=== PATIENT | female | born 1935 | race Caucasian/White ===

== ENCOUNTER 2016-12-07 20:07 | Observation (INO) ==
[2016-12-07] MEDS ORDERED: Aspirin 81 MG TAB.CHEW PO ONE (20:37)
--- NOTE | 2016-12-07 20:50 | Emergency Department Note ---
Disposition Clinical Impression: Chest pain Qualifiers: Chest pain type: unspecified Qualified Code(s): R07.9 - Chest pain, unspecified Disposition: Admitted As Inpatient Chest Pain HPI - General Chief Complaint: ED Chest Pain Stated Complaint: cp Time Seen by Provider: 12/07/16 20:37 Source: patient Limitations: no limitations Vital Signs Reviewed: Yes Nursing Notes Reviewed: Yes - History of Present Illness HPI Narrative: Mrs. Biswas, a previously healthy 81yo female, presents by POV from shopping with CC: chest pain. Daughter and son are bedside. Onset 45min prior to arrival, duration 10-15 min. Located substernal, described as a heaviness. Associated with nausea without vomiting, dyspnea, diaphoresis, left arm tingling and weakness. Patient has never experienced these symptoms before. She did not take aspirin prior to arrival. PMH: Patient takes no daily medications. She denies hypertension, hyperlipidemia, diabetes, history of cardiac problems, GERD. Family history: Denies familial history of cardiac problems. Severity scale (1-10): 5 - Related Data Home Medications Medication Instructions Recorded Confirmed Buspirone HCl [Buspar] 5 mg PO BID 12/07/16 12/07/16 Allergies Allergy/AdvReac Type Severity Reaction Status Date / Time No Known Allergies Allergy Verified 09/11/16 07:47 All systems ED: reviewed and negative except as stated. Constitutional: Denies: fever, chills Cardiovascular: Reports: chest pain. Denies: palpitations, dyspnea on exertion Respiratory: Reports: dyspnea. Denies: cough Gastrointestinal: Reports: nausea. Denies: abdominal pain, vomiting, diarrhea, constipation, hematemesis, melena, hematochezia Genitourinary: Denies: dysuria Musculoskeletal: Denies: back pain, neck pain Neurological: Reports: weakness, numbness. Denies: headache Hematological/Lymphatic: Denies: easy bleeding, easy bruising Chest Pain PMH - Past Medical History Medical history: Reports: no medical history Psychiatric history: Reports: no psych history - Social History Smoking Status: Never smoker Alcohol use: Reports: none Drug use: Reports: none Physical Exam General: Patient is alert, oriented, and in no acute distress. HEENT: No facial asymmetry. Head is normocephalic and atraumatic. PERRLA. Nasal turbinates moist and pink. Posterior pharynx without exudates or cobblestoning. Trachea midline, no palpable thyroid nodules, no thyromegaly. Cardiovascular: Heart regular rate and rhythm with split S1 and without clicks, rubs, gallops, or murmurs. No JVD. PMI nondisplaced. Respiratory: Symmetric chest rise with good respiratory effort. Bilateral breath sounds are clear without wheezing, crackles, or rhonchi. Abdomen: Bowel sounds present normoactive x-4 quadrants. Abdomen is soft, nondistended, and nontender. No organomegaly noted. Neuro: Cranial nerves II through XII grossly intact. Sensation light touch intact. Psych: Patient's affect is appropriate for situation. - General Limitations: no limitations General appearance: alert, in no apparent distress Course Course Narrative: Will workup for chest pain rule out. The patient's medical history is not concerning, she is high risk given her age and convincing story. Anticipate admission for observation and continued workup. CT head was ordered on this patient. Indication was incorrectly described as CVA with history of dizziness. Patient does not have a history of CVA. Patient does not complain of dizziness. Patient did have vague complaints including neurologic symptoms of her left arm. CT head was negative. At this juncture, patient's lab work was unremarkable from a cardiac standpoint. Even so, have recommended the patient be placed in observation for continued cardiac workup given the initial blood draw was done within 90 minutes of onset of symptoms. Patient's story is concerning as is her age group. Vital Signs Temperature 0 F L 12/07/16 20:09 Pulse Rate 0 12/07/16 20:09 Respiratory Rate 0 12/07/16 20:09 Blood Pressure 0/0 12/07/16 20:09 O2 Sat by Pulse Oximetry 0 L 12/07/16 20:09 Temperature 97.9 F 12/08/16 00:18 Pulse Rate 73 12/08/16 00:18 Respiratory Rate 16 12/08/16 00:18 Blood Pressure 98/80 12/08/16 00:18 O2 Sat by Pulse Oximetry 95 12/08/16 00:18 Oxygen Delivery Oxygen Delivery Room Air Chest Pain - Lab Data Result diagrams: 12/07/16 21:21 12/07/16 21:21 Lab Results 12/07/16 12/07/16 12/07/16 Range/Units 21:21 21:21 21:21 WBC 6.4 (4.3-11.1) K/mcL RBC 4.78 (3.82-4.97) M/mcL Hgb 15.1 (11.5-15.4) g/dL Hct 45.9 H (35.3-44.9) % MCV 96.0 (83.0-100.0) fL MCH 31.6 (28.0-33.3) pg MCHC 32.9 (31.6-35.5) g/dL RDW 12.4 (11.5-14.5) % Plt Count 250 (140-400) K/mcL MPV 9.2 L (9.4-12.4) fL Immature Gran % 0.2 (0-4) % Seg Neutrophils % 66.1 % Lymphocytes % 23.7 % Monocytes % 7.5 % Eosinophils % 1.7 % Basophils % 0.8 % Neutrophils # 4.2 (1.6-8.9) K/mcL Lymphocytes # 1.5 (0.6-4.6) K/mcL Monocytes # 0.5 (0.0-1.3) K/mcL Eosinophils # 0.1 (0.0-0.6) K/mcL Basophils # 0.1 (0.0-0.2) K/mcL PT 12.4 H (9.4-12.1) Seconds INR 1.1 APTT 30.3 (26.0-36.0) Seconds Sodium 134 L (136-145) mEq/L Potassium 4.3 (3.5-4.5) mEq/L Chloride 97 L (98-109) mEq/L Carbon Dioxide 27 (19-29) mEq/L BUN 15 (7-20) mg/dL Creatinine 0.99 (0.57-1.11) mg/dL Est GFR ( Amer) > 60 (> 60) Est GFR (Non-Af Amer) 54 L (> 60) BUN/Creatinine Ratio 15 (6-26) Glucose 214 H (70-99) mg/dL Calculated Osmolality 285 (280-300) Calcium 8.8 (8.6-10.8) mg/dL Troponin I (0-0.03) ng/mL 12/07/16 Range/Units 21:21 WBC (4.3-11.1) K/mcL RBC (3.82-4.97) M/mcL Hgb (11.5-15.4) g/dL Hct (35.3-44.9) % MCV (83.0-100.0) fL MCH (28.0-33.3) pg MCHC (31.6-35.5) g/dL RDW (11.5-14.5) % Plt Count (140-400) K/mcL MPV (9.4-12.4) fL Immature Gran % (0-4) % Seg Neutrophils % % Lymphocytes % % Monocytes % % Eosinophils % % Basophils % % Neutrophils # (1.6-8.9) K/mcL Lymphocytes # (0.6-4.6) K/mcL Monocytes # (0.0-1.3) K/mcL Eosinophils # (0.0-0.6) K/mcL Basophils # (0.0-0.2) K/mcL PT (9.4-12.1) Seconds INR APTT (26.0-36.0) Seconds Sodium (136-145) mEq/L Potassium (3.5-4.5) mEq/L Chloride (98-109) mEq/L Carbon Dioxide (19-29) mEq/L BUN (7-20) mg/dL Creatinine (0.57-1.11) mg/dL Est GFR ( Amer) (> 60) Est GFR (Non-Af Amer) (> 60) BUN/Creatinine Ratio (6-26) Glucose (70-99) mg/dL Calculated Osmolality (280-300) Calcium (8.6-10.8) mg/dL Troponin I 0.01 (0-0.03) ng/mL - Radiology Data Radiology results reviewed: Yes I reviewed the patient's radiology results. Chest X-Ray 12/07/16 20:37 IMPRESSION: No acute abnormality. Large hiatal hernia D/ / 12/07/2016 21:55:08 Axel Yung MD / [email or web address] Interpreting Provider: Axel Yung MD Head CT 12/07/16 21:12 IMPRESSION: No acute intracranial abnormality. Moderate cerebral atrophy appropriate for age. Mild to moderate chronic ischemic white matter changes also age-appropriate. No significant change from the prior study. RECOMMENDATIONS: If the patient's symptoms persist, a MRI would be recommended for further evaluation. D/ / Missael Bragg MD / Missael Bragg MD Interpreting Provider: Missael Bragg MD - EKG Data EKG attestation: Yes I reviewed and interpreted this EKG. EKG results narrative: EKG dated 12/07/16 at 20:20 shows sinus rhythm with rate of 70, rare PVC, normal intervals, left axis, nonspecific ST-T changes. Compared to previous dated at 21:59 showing no acute ischemic changes or comparison. Attestation Statement - Attestation Attestation: I, Shetlon Holden MD, personally performed a history and physical exam of the patient and discussed their management with the resident. I reviewed the resident's note and agree with the documented findings, medical decision making , and plan of care. 81-year-old female presents to the emergency department with family complaining that the patient had an episode of chest pain shortly prior to arrival. She has no known prior cardiac history. He reported patient complained of a lot of heaviness and pressure in her mid chest which radiated to the left arm. The episode was associated with nausea and shortness of breath and diaphoresis. The chest pain lasted 10-15 minutes and resolved. No pain at present. On examination patient is a well-developed well-nourished elderly female in no acute distress. She is alert but seems to have dementia and does not really remember much about the episode of chest pain. There is no cyanosis or diaphoresis. Chest is nontender to palpation. Breath sounds are clear and equal bilaterally. Heart regular rate and rhythm. Abdomen soft and nontender with normal bowel sounds. No acute changes on EKG. Chest x-ray negative. Head CT is negative. Labs reviewed. The hospitalist, Dr. Lockhart, was consulted and accepted admission of the patient.
[2016-12-07 21:28] LABS: Basophils # 0.1 K/mcL (0.0-0.2); Basophils % 0.8 %; Eosinophils # 0.1 K/mcL (0.0-0.6); Eosinophils % 1.7 %; Hematocrit 45.9 % (35.3-44.9); Hemoglobin 15.1 g/dL (11.5-15.4); Immature Granulocytes % 0.2 % (0-4); Lymphocytes # 1.5 K/mcL (0.6-4.6); Lymphocytes % 23.7 %; Mean Corpuscular HGB Conc 32.9 g/dL (31.6-35.5); Mean Corpuscular Hemoglobin 31.6 pg (28.0-33.3); Mean Platelet Volume 9.2 fL (9.4-12.4); Monocytes # 0.5 K/mcL (0.0-1.3); Monocytes % 7.5 %; Neutrophils # 4.2 K/mcL (1.6-8.9); Platelet Count 250 K/mcL (140-400); Red Blood Count 4.78 M/mcL (3.82-4.97); Red Cell Distribution Width 12.4 % (11.5-14.5); Segmented Neutrophils % 66.1 %
[2016-12-07 21:33] LABS: INR 1.1; Prothrombin Time 12.4 Seconds (9.4-12.1)
[2016-12-07 21:35] LABS: Activated Partial Thrombo Time 30.3 Seconds (26.0-36.0)
[2016-12-07 21:40] LABS: BUN/Creatinine Ratio 15 (6-26); Blood Urea Nitrogen 15 mg/dL (7-20); Calcium 8.8 mg/dL (8.6-10.8); Carbon Dioxide 27 mEq/L (19-29); Chloride 97 mEq/L (98-109); Glucose 214 mg/dL (70-99); Osmolality,Calculated 285 (280-300); Potassium 4.3 mEq/L (3.5-4.5); Sodium 134 mEq/L (136-145); eGFR For African Americans > 60 (> 60); eGFR For Non-African Americans 54 (> 60)
[2016-12-08] MEDS ORDERED: Acetaminophen 325 MG TABLET PO PRN (01:21)
[2016-12-08] MEDS ORDERED: Ondansetron 4 MG/2 ML VIAL IVP PRN (01:21)
[2016-12-08] MEDS ORDERED: Naloxone 0.4 MG/ML INJ IVP PRN (01:21)
[2016-12-08] MEDS ORDERED: *HR* Morphine 2 MG/ML SYRINGE IVP PRN (01:21)
[2016-12-08] MEDS ORDERED: *HR* OxyCODONE Immed Rel 5 MG TABLET PO PRN (01:21)
[2016-12-08] MEDS ORDERED: 0.9 % Sodium Chloride 1,000 ML IVC SCH (01:30)
[2016-12-08] MEDS ORDERED: Nitroglycerin 0.4 MG TAB.SUBL SL PRN (01:31)
[2016-12-08] MEDS ORDERED: *HR* Metoprolol 5 MG/5 ML VIAL IVP PRN (01:31)
[2016-12-08 04:24] LABS: Hematocrit 45.3 % (35.3-44.9); Hemoglobin 14.9 g/dL (11.5-15.4); Mean Corpuscular HGB Conc 32.9 g/dL (31.6-35.5); Mean Corpuscular Hemoglobin 31.3 pg (28.0-33.3); Mean Corpuscular Volume 95.2 fL (83.0-100.0); Mean Platelet Volume 9.5 fL (9.4-12.4); Platelet Count 269 K/mcL (140-400); Red Blood Count 4.76 M/mcL (3.82-4.97); Red Cell Distribution Width 12.4 % (11.5-14.5)
[2016-12-08 04:27] LABS: INR 1.1; Prothrombin Time 11.8 Seconds (9.4-12.1)
[2016-12-08 04:30] LABS: Activated Partial Thrombo Time 29.9 Seconds (26.0-36.0)
[2016-12-08 04:37] LABS: Ionized Calcium 1.1 mmol/L (1.15-1.35)
[2016-12-08 04:40] LABS: Hemoglobin A1C 5.3 %
[2016-12-08 04:44] LABS: Alanine Aminotransferase 11 Units/L (0-55); Albumin 3.3 g/dL (3.5-5.0); Albumin/Globulin Ratio 0.9 (1.1-2.2); Alkaline Phosphatase 79 Units/L (38-126); Aspartate Amino Transferase 24 Units/L (5-34); BUN/Creatinine Ratio 16 (6-26); Bilirubin,Total 0.5 mg/dL (0.2-1.2); Blood Urea Nitrogen 14 mg/dL (7-20); Carbon Dioxide 23 mEq/L (19-29); Chloride 103 mEq/L (98-109); Chol/HDL Ratio 4.7 (0-4.9); Cholesterol 179 mg/dL (< 200); Globulin 3.6 g/dL (2.4-3.5); Glucose 68 mg/dL (70-99); HDL Cholesterol 38 mg/dL (40-59); LDL Cholesterol,Calculated 124 mg/dL (0-99); Magnesium 2.4 mg/dL (1.6-2.6); Osmolality,Calculated 283 (280-300); Phosphorous 3.4 mg/dL (2.3-4.7); Potassium 4.3 mEq/L (3.5-4.5); Sodium 137 mEq/L (136-145); Total Protein 6.9 g/dL (6.0-8.3); Triglycerides 86 mg/dL (< 150); eGFR For African Americans > 60 (> 60); eGFR For Non-African Americans > 60 (> 60)
[2016-12-08 04:47] LABS: VBG HCO3 29.2 mEq/L (21-27); VBG PH 7.42 pH Units (7.32-7.42)
[2016-12-08] MEDS ORDERED: Calcium Gluconate 1,000 MG in D5% in Water 100 ML IVPB ONE (04:48)
--- NOTE | 2016-12-08 04:55 | Internal Med History&Physical ---
Date of Encounter: 12/08/16 Time of Encounter: 01:30 Assessment and Plan (1) Chest pain, rule out acute myocardial infarction Status: Acute . (2) Chest pain with low risk of acute coronary syndrome Status: Acute . (3) Acute chest wall pain Status: Acute . (4) Alzheimer's dementia Status: Chronic . Qualifiers: Alzheimer's disease onset: late-onset Dementia behavioral disturbance: without behavioral disturbance Qualified Code(s): G30.1 - Alzheimer's disease with late onset; F02.80 - Dementia in other diseases classified elsewhere without behavioral disturbance (5) GERD (gastroesophageal reflux disease) Status: Chronic . Qualifiers: Esophagitis presence: esophagitis presence not specified Qualified Code(s) : K21.9 - Gastro-esophageal reflux disease without esophagitis (6) Hiatal hernia Status: Chronic . (7) Osteoarthritis involving multiple joints on both sides of body Status: Chronic . (8) Osteopenia Status: Chronic . (9) Generalized anxiety disorder Status: Chronic . (10) Frail elderly Status: Chronic . Internal Medicine - H&P: HPI Chief complaint: Chest pain Admitted From: Emergency Dept Plans for Post Hospital Care: Home History of present illness: Ms. Biswas is a 81 year old female with no reported chronic medical concerns. She is a nonsmoker. The patient was visited and interviewed and examined. Patient is admitted to the [facility] via the emergency department which presents with complaints of acute onset of chest pain. Patient presented the company of family with reports of acute onset of chest pain beginning within 1 hour of ER presentation. Substernal associated as a oppressive heaviness and feeling of generalized malaise. He was rated as a 5-6/10 severity. Patient experienced some nausea and dyspnea but no emesis. Denied abdominal pain headache diaphoresis left arm paresthesias/ discomfort vision loss or any focal weakness. She denied any similar events in her past. She denied any personal or family related history pertaining to heart disease. She further denied any knowledge personal history for hypertension dyslipidemia and diabetes. Patient and family acknowledged an event that occurred within the hour of a meal which included macedonian fries. It is possible that the symptoms may have been related to her degree of indigestion. It is acknowledged that she has had episodes in the past remotely though of dysphagia and GERD. This was treated with a daily PPI for approximately 30 days with apparent resolution of the further symptoms. She is no longer on a PPI or an antacid therapy. She has never undergone upper endoscopy or lower endoscopy procedures. She does take on occasion Buspar for anxiety. Volunteers that she currently is not suffering from increased anxiety or personal worries. Findings in the ED: Temperature 97.9 pulse 73 respirations 16 BP 98/82 saturation 95% on room air. CBC 6.4 hemoglobin 15.1 platelets 250,000. Differential normal. MPV 9.2. PT 12.4 INR 1.1 PTT 30.3. Metabolic panel normal except sodium 130 chloride 97. BUN 15 creatinine 0.99 GFR 54. Glucose 214 osmolality 285. Troponin 0.01. Portable chest x-ray shows no acute or active cardiopulmonary process. Large hiatal hernia noted. DT head scan showed no acute intracranial abnormality. Moderate cerebral atrophy appropriate for age noted. Mild to moderate chronic ischemic white matter changes. EKG sinus rhythm at 70 bpm. Rare PVC. No acute ischemic changes. Pulmonary impression suggests acute chest pain syndrome with typical and atypical features. Screening studies benign. Patient is pain-free at the time of presentation to the ED. Resolving spontaneously without any residual complaints. A mild relative hypotension noted with vital signs and resting hypoxemia. Mild hyperglycemia on chemistries and relative mild renal insufficiency. Given age and sex patient presents at a modest risk for further acute coronary event. Workup and treatments will proceed comprehensively. Cumulative laboratory and radiographic data base was reviewed, considered and discussed. Pertinent ancillary medical records including ECW and PCI documentation, when available was reviewed and considered. Given the patient's presenting concerns, past medical history, clinical findings and symptoms, she is admitted at this time will undergo further evaluation and disposition. Orders were written as per the computerized physician work order clerk system.......................................................................... .................... Consultative opinion and will be sought as clinical circumstances justify. Pain management needs will be addressed. Laboratory and radiographic data base will be updated as appropriate. Studies include: CPK, amylase, lipase, cardiac injury panel, BNP, metabolic and hematologic panel, magnesium, phosphorus, ionized calcium, thyroid panel, lipid profile, A1c, C-peptide, CRP, sedimentation rate,UA, blood gas, lactic acid, serologies, etc. Precautions: Aspiration, fall, delirium protocol/surveillance initiated. Telemetry with continuous hemodynamic monitoring and pulse oximetry initiated. Special studies: CT chest, chest x-ray, telemetry, EKG, echocardiogram. Pulmonary toilet: Incentive spirometry. When necessary aerosol bronchodilator, mucolytic, antitussive. Supplemental oxygen. Corticosteroid therapy prn. CPAP /BiPAP supplemental oxygen delivery prn. Aerosol Mucomyst therapy prn. Fluid and electrolyte repletion efforts will proceed. Careful attention to fluid balance and renal recovery will be emphasized. Avoidance of nephrotoxic exposure and adverse drug drug interaction in the setting of impaired renal function will be monitored closely. Acute coronary syndrome protocol/surveillance initiated. Aspirin, beta anant , statin, BERNARD inhibitor. When necessary nitrates. When necessary morphine. Supplemental oxygen. Lovenox subcutaneous. DVT and PUD prophylaxis initiated: PPI therapy, intermittent pneumatic cuffs. Subcutaneous heparin/Lovenox. Early ambulation will be encouraged. Immunization updates recommended. Influenza and pneumococcal vaccinations as part of ongoing preventative healthcare recommendations strongly recommended. Smoking cessation counseling briefly addressed. Patient is a nonsmoker. Advanced care directive discussion briefly addressed. Patient does not declare any healthcare restrictions at this time. Cardiovascular risk appraisal and cardiovascular risk reduction efforts will be emphasized. Physical and occupational therapy may be consulted to assess patient's functional capacity and progress mobility if circumstances warrant. Outpatient medication schedules will be reviewed confirmed and facilitated as appropriate. Reconciliation of home treatments including adjustments, substitutions and reintroduction into the treatment regimen will address necessary maintenance therapies for chronic pre-existing medical conditions. Plan of care has been reviewed and discussed in detail with the patient and family. Questions addressed. Hospital course will depend upon clinical findings, treatment response and potential consultative interventions. Patient is at risk for further acute clinical decline and morbidity due to her age, chief complaints and comorbidities. Condition is serious. Prognosis is cautiously optimistic. CODE STATUS is full. Past Med Surg Social Fam HX - Past Medical History Source: old records reviewed, obtained from family Medical history: arthritis, GERD, osteoporosis, other Psychiatric history: anxiety, other - Past Surgical History Surgical History: other - Social History Smoking Status: Never smoker Smokeless Tobacco Status: No Alcohol use: none Drug use: none Occupational status: retired Current living situation: Home - Independent, With Family Activity Level: Mostly sedentary Recent Out of Country Travel Within the Last 8 Weeks: No Exposure or Possible Exposure to Illness During Travel: No Internal Medicine - H&P: Meds Buspirone HCl [Buspar] 5 mg PO BID 12/07/16 [History] Allergies No Known Allergies Allergy (Verified 09/11/16 07:47) All Systems PM: A 10-system review of systems was performed and is negative for pertinent findings except as documented above in the HPI. - Constitutional Constitutional: as per HPI, no chills, no fever(s), no night sweats - EENT Eyes: as per HPI, no change in vision, no discharge, no pain, no photophobia Nose, mouth and throat: as per HPI, no dysphagia, no nasal discharge, no neck pain, no sore throat - Cardiovascular Cardiovascular ROS IM: as per HPI, chest pain, dyspnea, no diaphoresis, no edema , no lightheadedness, no orthopnea, no palpitations, no paroxysmal nocturnal dyspnea, no syncope - Respiratory Respiratory: as per HPI, other, no cough, no dyspnea, no wheezing, no excessive phlegm production - Gastrointestinal Gastrointestinal: as per HPI, nausea, no abdominal pain, no diarrhea, no hematemesis, no hematochezia, no melena, no vomiting - Genitourinary Genitourinary: as per HPI, no change in urinary stream, no dysuria, no flank pain, no hematuria - Musculoskeletal Musculoskeletal ROS IM: as per HPI, no numbness, no tingling - Integumentary Integumentary IM: as per HPI, no rash, no unusual bruising - Neurological Neurological ROS: as per HPI, no confusion, no convulsions, no focal weakness, no numbness, no tingling, no tremor(s) - Psychiatric Psychiatric: as per HPI - Endocrine Endocrine IM: as per HPI - Hematologic/Lymphatic Hematologic/Lymphatic: as per HPI, no easy bruising - Allergic/Immunologic Allergic/Immunologic: as per HPI - Constitutional Vitals: Temp Pulse Resp BP Pulse Ox 97.5 F L 66 16 109/62 93 L 12/08/16 04:32 12/08/16 04:32 12/08/16 04:32 12/08/16 04:32 12/08/16 04:32 General appearance: Present: cooperative, mild distress, A&O X 3, underweight, answers questions appropriately - Head Head exam: Present: atraumatic, normocephalic - Eye Eye exam: Present: EOMI, PERRL, conjuntiva pink, sclera anicteric Pupils: Present: normal accommodation, PERRL - ENT ENT exam: Present: mucous membranes moist, normal oropharynx - Neck Neck exam general surgery: Present: supple, trachea midline. Absent: lymphadenopathy - Respiratory Respiratory exam: Present: chest wall tenderness, decreased breath sounds, CTAB. Absent: accessory muscle use, rales, rhonchi, wheezes - Cardiovascular Cardiovascular exam: Present: distant heart sounds, RRR, +S1, +S2. Absent: diastolic murmur, gallop, rubs, systolic murmur - GI/Abdominal GI/Abdominal exam: Present: diminished bowel sounds, soft, no peritoneal signs. Absent: distended, tenderness - Extremities Exam Extremities exam: Present: full ROM, warm, radial pulses palpable and symetrical. Absent: calf tenderness, cyanotic, pedal edema - Neurological Exam Neurological exam: Present: alert, CN II-XII intact, oriented X3, no focal deficits. Absent: pronater drift, facial droop, speech deficit - Psychiatric Psychiatric exam: Present: normal affect, normal mood - Skin Skin exam: Present: dry, intact, warm. Absent: petechiae, rash, urticaria, vesicles Internal Med - H&P Results - Labs CBC & Chem 7: 12/08/16 02:46 12/08/16 02:46 Labs: Short CBC 12/08/16 Range/Units 02:46 WBC 6.3 (4.3-11.1) K/mcL Hgb 14.9 (11.5-15.4) g/dL Hct 45.3 H (35.3-44.9) % Plt Count 269 (140-400) K/mcL BMP 12/08/16 02:46 Sodium 137 Potassium 4.3 Chloride 103 Carbon Dioxide 23 BUN 14 Creatinine 0.85 Glucose 68 L Calcium 9.0 Liver Function 12/08/16 Range/Units 02:46 Total Bilirubin 0.5 (0.2-1.2) mg/dL AST 24 (5-34) Units/L ALT 11 (0-55) Units/L Alkaline Phosphatase 79 (38-126) Units/L Albumin 3.3 L (3.5-5.0) g/dL - ABG Interpretation ABG results: 12/08/16 02:46 VBG pH 7.42 VBG pCO2 45 VBG pO2 142 H VBG HCO3 29.2 H - Impressions Vital Signs Temp Pulse Resp BP Pulse Ox 12/08/16 04:32 97.5 F L 66 16 109/62 93 L 12/08/16 00:18 97.9 F 73 16 98/80 95 12/07/16 23:54 20 106/72 12/07/16 22:57 72 14 118/89 98 12/07/16 21:51 68 15 111/89 98 12/07/16 20:50 69 14 98 12/07/16 20:17 0 F L 71 14 142/85 98 12/07/16 20:09 0 F L 0 0 0/0 0 L Intake and Output 12/07/16 12/07/16 12/08/16 15:59 23:59 07:59 Other: Weight 45.359 kg 46.539 kg Patient Weight 12/08/16 23:59 Weight 46.539 kg Short CBC 12/08/16 12/07/16 Range/Units 02:46 21:21 WBC 6.3 6.4 (4.3-11.1) K/mcL Hgb 14.9 15.1 (11.5-15.4) g/dL Hct 45.3 H 45.9 H (35.3-44.9) % Plt Count 269 250 (140-400) K/mcL Neutrophils # 4.2 (1.6-8.9) K/mcL BMP 12/08/16 12/07/16 Range/Units 02:46 21:21 Sodium 137 134 L (136-145) mEq/L Potassium 4.3 4.3 (3.5-4.5) mEq/L Chloride 103 97 L (98-109) mEq/L Carbon Dioxide 23 27 (19-29) mEq/L BUN 14 15 (7-20) mg/dL Creatinine 0.85 0.99 (0.57-1.11) mg/dL Glucose 68 L 214 H (70-99) mg/dL Calcium 9.0 8.8 (8.6-10.8) mg/dL Cardiac Enzymes 12/08/16 12/07/16 Range/Units 02:46 21:21 Troponin I 0.01 0.01 (0-0.03) ng/mL Liver Function 12/08/16 Range/Units 02:46 Total Bilirubin 0.5 (0.2-1.2) mg/dL AST 24 (5-34) Units/L ALT 11 (0-55) Units/L Alkaline Phosphatase 79 (38-126) Units/L Albumin 3.3 L (3.5-5.0) g/dL 12/08/16 02:46 VBG pH 7.42 VBG pCO2 45 VBG pO2 142 H VBG HCO3 29.2 H Laboratory Results WBC 6.3 K/mcL (4.3-11.1) 12/08/16 02:46 RBC 4.76 M/mcL (3.82-4.97) 12/08/16 02:46 Hgb 14.9 g/dL (11.5-15.4) 12/08/16 02:46 Hct 45.3 % (35.3-44.9) H 12/08/16 02:46 MCV 95.2 fL (83.0-100.0) 12/08/16 02:46 MCH 31.3 pg (28.0-33.3) 12/08/16 02:46 MCHC 32.9 g/dL (31.6-35.5) 12/08/16 02:46 RDW 12.4 % (11.5-14.5) 12/08/16 02:46 Plt Count 269 K/mcL (140-400) 12/08/16 02:46 MPV 9.5 fL (9.4-12.4) 12/08/16 02:46 Immature Gran % 0.2 % (0-4) 12/07/16 21:21 Seg Neutrophils % 66.1 % 12/07/16 21:21 Lymphocytes % 23.7 % 12/07/16 21:21 Monocytes % 7.5 % 12/07/16 21:21 Eosinophils % 1.7 % 12/07/16 21:21 Basophils % 0.8 % 12/07/16 21:21 Neutrophils # 4.2 K/mcL (1.6-8.9) 12/07/16 21:21 Lymphocytes # 1.5 K/mcL (0.6-4.6) 12/07/16 21:21 Monocytes # 0.5 K/mcL (0.0-1.3) 12/07/16 21:21 Eosinophils # 0.1 K/mcL (0.0-0.6) 12/07/16 21:21 Basophils # 0.1 K/mcL (0.0-0.2) 12/07/16 21:21 PT 11.8 Seconds (9.4-12.1) 12/08/16 02:46 INR 1.1 12/08/16 02:46 APTT 29.9 Seconds (26.0-36.0) 12/08/16 02:46 VBG pH 7.42 pH Units (7.32-7.42) 12/08/16 02:46 VBG pCO2 45 mmHg (41-51) 12/08/16 02:46 VBG pO2 142 mmHg (25-40) H 12/08/16 02:46 VBG HCO3 29.2 mEq/L (21-27) H 12/08/16 02:46 Sodium 137 mEq/L (136-145) 12/08/16 02:46 Potassium 4.3 mEq/L (3.5-4.5) 12/08/16 02:46 Chloride 103 mEq/L (98-109) 12/08/16 02:46 Carbon Dioxide 23 mEq/L (19-29) 12/08/16 02:46 BUN 14 mg/dL (7-20) 12/08/16 02:46 Creatinine 0.85 mg/dL (0.57-1.11) 12/08/16 02:46 Est GFR ( Amer) > 60 (> 60) 12/08/16 02:46 Est GFR (Non-Af Amer) > 60 (> 60) 12/08/16 02:46 BUN/Creatinine Ratio 16 (6-26) 12/08/16 02:46 Glucose 68 mg/dL (70-99) L 12/08/16 02:46 POC Glucose 92 (58-89) H 12/08/16 07:19 Est Mean Plasma Glucose 105 mg/dl 12/08/16 02:46 Hemoglobin A1c 5.3 % (-5.6) 12/08/16 02:46 Calculated Osmolality 283 (280-300) 12/08/16 02:46 Calcium 9.0 mg/dL (8.6-10.8) 12/08/16 02:46 Ionized Calcium 1.10 mmol/L (1.15-1.35) L 12/08/16 02:46 Phosphorus 3.4 mg/dL (2.3-4.7) 12/08/16 02:46 Magnesium 2.4 mg/dL (1.6-2.6) 12/08/16 02:46 Total Bilirubin 0.5 mg/dL (0.2-1.2) 12/08/16 02:46 AST 24 Units/L (5-34) 12/08/16 02:46 ALT 11 Units/L (0-55) 12/08/16 02:46 Alkaline Phosphatase 79 Units/L (38-126) 12/08/16 02:46 Troponin I 0.01 ng/mL (0-0.03) 12/08/16 08:39 C-Reactive Protein 1 mg/L (Less than 5) 12/08/16 02:46 Serum Total Protein 6.9 g/dL (6.0-8.3) 12/08/16 02:46 Albumin 3.3 g/dL (3.5-5.0) L 12/08/16 02:46 Globulin 3.6 g/dL (2.4-3.5) H 12/08/16 02:46 Albumin/Globulin Ratio 0.9 (1.1-2.2) L 12/08/16 02:46 Triglycerides 86 mg/dL (< 150) 12/08/16 02:46 Cholesterol 179 mg/dL (< 200) 12/08/16 02:46 LDL Cholesterol, Calc 124 mg/dL (0-99) H 12/08/16 02:46 VLDL Cholesterol, Calc 17 mg/dL (< 31) 12/08/16 02:46 HDL Cholesterol 38 mg/dL (40-59) L 12/08/16 02:46 Cholesterol/HDL Ratio 4.7 (0-4.9) 12/08/16 02:46 Amylase 230 Units/L (25-125) H 12/08/16 02:46 Lipase 142 Units/L (8-78) H 12/08/16 02:46 TSH 2.027 mcIU/mL (0.350-4.840) 12/08/16 02:46 Blood Type B POSITIVE 12/08/16 02:46 Antibody Screen NEGATIVE 12/08/16 02:46 Impressions Chest X-Ray 12/07/16 20:37 IMPRESSION: No acute abnormality. Large hiatal hernia D/ / 12/07/2016 21:55:08 Axel Yung MD / [email or web address] Interpreting Provider: Axel Yung MD Head CT 12/07/16 21:12 IMPRESSION: No acute intracranial abnormality. Moderate cerebral atrophy appropriate for age. Mild to moderate chronic ischemic white matter changes also age-appropriate. No significant change from the prior study. RECOMMENDATIONS: If the patient's symptoms persist, a MRI would be recommended for further evaluation. D/ / Missael Bragg MD / Missael Bragg MD Interpreting Provider: Missael Bragg MD
[2016-12-08 05:27] LABS: Thyroid Stimulating Hormone 2.027 mcIU/mL (0.350-4.840)
[2016-12-08] MEDS ORDERED: *HR* Heparin 5,000 UNIT/ML VIAL SQ SCH (07:00)
[2016-12-08 07:17] VITALS: BP 123/61
[2016-12-08] MEDS ORDERED: Pantoprazole 40 MG VIAL IVP SCH (09:00)
[2016-12-08] MEDS ORDERED: Aspirin 81 MG TAB.CHEW PO SCH (09:00)
--- NOTE | 2016-12-08 10:50 | Discharge Summary ---
Date of Encounter: 12/08/16 Time of Encounter: 10:20 - Discharge Diagnosis (1) Chest pain, atypical Priority: Primary Status: Acute (2) Alzheimer's dementia Priority: Secondary Status: Chronic Qualifiers: Alzheimer's disease onset: late-onset Dementia behavioral disturbance: without behavioral disturbance Qualified Code(s): G30.1 - Alzheimer's disease with late onset; F02.80 - Dementia in other diseases classified elsewhere without behavioral disturbance (3) Frail elderly Priority: Secondary Status: Chronic (4) Generalized anxiety disorder Priority: Secondary Status: Chronic (5) Vaso vagal episode Priority: Primary Status: Acute - Discharge Medications Home Medications: Buspirone HCl [Buspar] 5 mg PO BID 12/07/16 [History] Allergies/Adverse Reactions: Allergies No Known Allergies Allergy (Verified 09/11/16 07:47) Procedures/tests Complete & Pending: Procedures Performed prior 72 hours Category Date Time Status ECG 12 lead ECG [ECG] Routine Y 12/09/16 07:00 Ordered EV echocardiogram Routine Y 12/08/16 01:33 Ordered Date of admission: 12/07/16 23:45 Primary care physician: PCP NO Consults: 12/08/16 01:33 Consult to Cardiac Rehabilitation-Phase1 [CONS] Routine Comment: Reason for Consult: AMI Call Completed: Yes Consult to Nurse Navigator [CONS] Routine Comment: Discharging clinician: Brett Hogan Anticipated date of discharge: 12/08/16 - Patient Status Disposition: Home, Self-Care Condition: Good Overall status at discharge: patient is back to baseline - Discharge Instructions Instructions: Chest Pain (DC) Follow Up With: NO,PCP [Primary Care Provider] - - Diet and Activity Activity: resume usual activities as tolerated Diet: advance to your usual diet Interval History: She had no complaints. Basic cardiac work-up is negative thus far. Hospital course: Ms. Biswas is a 81 year old female with medical history significant for GRACE and Alzhemier's dementia, absent any cardiac history was admitted after she complained of chest pressure after a meal. She was admitted aut of caution for observation considering her age. Cycled troponin and serial EKG remained normal. She was symptom-free through her hospitalization. At discharge: O/E: Not in distress HEENT: Not plae, anicteric, afebrile, acyanotic Chest: CTAB Heart: RRR, HS1/2, no M. Abdomen: soft, non-tender, no masses. : No flank tenderrness, no CVA tenderness, no suprapubic tenderness. TERRITORY ACCOUNT MANAGER: AAO X 3. No gross focal neurological deficits. Skin: No active skin lesions. Final diagnosis 1. Atypical chest pain 2. Vagal episode. PLAN DC home F/U with PCP Outpatient pharmacological stress test. - Time Spent with Patient Total time spent providing and/or coordinating discharge services: - Constitutional Vitals: Temp Pulse Resp BP Pulse Ox 97.4 F L 98 16 123/61 97 12/08/16 07:17 12/08/16 07:17 12/08/16 07:17 12/08/16 07:17 12/08/16 07:17
--- NOTE | 2016-12-09 17:26 | Electrocardiograph Report ---
[facility] Test Date: 2016-12-07 Pat Name: DANUTA CANNON Department: 105 Room: 3B34 Gender: F Systems Integrator: NANCY : 1935 Requested By: Atif Sutherland Order Number: [id number] Reading MD: Brad Weston DO Measurements Intervals [place] Rate: 70 P: 20 DE: 127 QRS: -17 QRSD: 94 T: 31 QT: 410 QTc: 431 Interpretive Statements Sinus rhythm with PACs Electronically Signed On 12-09-16 17:25:51 EST by Brad Weston DO
== END 2016-12-08 12:05 | disposition home or self-care (01) ==
LOC: EMEROO 20:07 → 3BNU 20:07
PROVIDERS: ADMIT Family Medicine; ATTEND Internal Medicine Endocrinology, Diabetes & Metabolism

== ENCOUNTER 2017-12-12 15:37 | Observation (INO) ==
--- NOTE | 2017-12-12 17:24 | Emergency Department Note ---
Disposition Clinical Impression: Hypoxemia Pneumonia Qualifiers: Pneumonia type: due to unspecified organism Laterality: bilateral Lung location : unspecified part of lung Qualified Code(s): J18.9 - Pneumonia, unspecified organism Dementia Qualifiers: Dementia type: unspecified type Dementia behavioral disturbance: without behavioral disturbance Qualified Code(s): F03.90 - Unspecified dementia without behavioral disturbance Disposition: Admitted As Inpatient Referrals: NONE,PCP [Primary Care Provider] - Forms: ED Satisfaction Letter Weakness HPI - General Chief complaint: ED Weakness Stated complaint: Cough,fall,weakness Time Seen by Provider: 12/12/17 16:28 Source: patient, family Limitations: no limitations Nursing Notes Reviewed: Yes Vital Signs Reviewed: Yes - History of Present Illness HPI Narrative: Presents with cough for the last 5 days and did see the primary care doctor who prescribed amoxicillin but told the patient to wait to start it and see if her symptoms worsen they have not yet started the medication. The patient is not able to give any history secondary to her condition of dementia. History is from the patient's [id number] is also the caregiver. The patient last night was found that followed that she had fallen but this was a unwitnessed fall. She is not struggling to breathe according to the caregiver, no vomiting , diarrhea. No recorded fevers. Pain Scale: 4 - Related Data Home Medications Medication Instructions Recorded Confirmed Omeprazole [PriLOSEC] 20 mg PO DAILY 12/12/17 12/12/17 Allergies Allergy/AdvReac Type Severity Reaction Status Date / Time No Known Allergies Allergy Verified 09/11/16 07:47 Review of Systems: unable to obtain secondary to altered level of consciousness Past Medical History - Past Medical History Medical history: Reports: arthritis, GERD, osteoporosis, other Surgical history: Reports: other Psychiatric history: Reports: anxiety, other - Social History Smoking Status: Never smoker Smokeless Tobacco Status: No Alcohol use: Reports: none Drug use: Reports: none Physical Exam CONSTITUTIONAL: Alert , pleasant, breathing comfortably, color is good, no respiratory distress, well appearing, in no apparent distress HEAD: Normocephalic; atraumatic. EYES: PERRL, no scleral icterus. NOSE: The nose is normal in appearance without rhinorrhea RESP: Normal chest excursion with respiration; breath sounds clear and equal bilaterally; no wheezes, rhonchi, or rales CARD: Regular rhythm, without murmurs, rub or gallop ABD: Non-distended; non-tender, soft,without rigidity, rebound or guarding SKIN: Normal for age and race; warm and dry; no apparent lesions EXTREMITIES: Pulses are 2 plus and equal times 4 extremities, no peripheral edema or calf muscle pain. - General Limitations: no limitations General appearance: alert Course Vital Signs Temperature 101.8 F H 12/12/17 15:50 Pulse Rate 76 12/12/17 15:50 Respiratory Rate 18 12/12/17 15:50 Blood Pressure 118/68 12/12/17 15:50 O2 Sat by Pulse Oximetry 88 12/12/17 15:50 Temperature 101.8 F H 12/12/17 15:50 Pulse Rate 89 12/12/17 18:22 Respiratory Rate 18 12/12/17 18:22 Blood Pressure 112/70 12/12/17 18:22 O2 Sat by Pulse Oximetry 97 12/12/17 18:22 Oxygen Delivery Oxygen Delivery Room Air Weakness - MDM Narrative Medical decision making narrative: I did review her EKG which shows normal sinus rhythm with a rate of 88 without acute ischemic change. The patient clinically does have pneumonia, she is febrile, labs are ordered including lactate, the patient will be admitted to the hospital. The daughter most comfortable with this approach. She is oriented to her own name but does not even know the name of her caregiver or where she is. 1723 I did review the patient's lab results and the lytes are pending. Pelvis x-ray as well as head CT are negative and chest x-ray is pending. 1829 Chest x-ray shows pneumonia. The patient is hypoxemic, she is febrile, will be treated for pneumonia. I did confirm with the family that she has not been admitted to a health care facility recently and so she does get Rocephin 1 g and the next 500 mg IV and she will be admitted. We will speak with the hospitalist. 1839 Case is discussed with the hospitalist of the patient for admission 1847 - Medical Records Medical records reviewed: Yes I reviewed the patient's medical records. - Lab Data Lab results reviewed: Yes I reviewed the patient's lab results. Result diagrams: 12/12/17 18:03 12/12/17 18:03 Lab Results 12/12/17 12/12/17 12/12/17 Range/Units 17:06 18:03 18:03 WBC 11.5 H (4.3-11.1) K/mcL RBC 4.59 (3.82-4.97) M/mcL Hgb 14.7 (11.5-15.4) g/dL Hct 43.9 (35.3-44.9) % MCV 95.6 (83.0-100.0) fL MCH 32.0 (28.0-33.3) pg MCHC 33.5 (31.6-35.5) g/dL RDW 12.6 (11.5-14.5) % Plt Count 233 (140-400) K/mcL MPV 9.1 L (9.4-12.4) fL Immature Gran % 0.5 (0-4) % Seg Neutrophils % 84.3 % Lymphocytes % 6.7 % Monocytes % 8.1 % Eosinophils % 0.1 % Basophils % 0.3 % Neutrophils # 9.7 H (1.6-8.9) K/mcL Lymphocytes # 0.8 (0.6-4.6) K/mcL Monocytes # 0.9 (0.0-1.3) K/mcL Eosinophils # 0.0 (0.0-0.6) K/mcL Basophils # 0.0 (0.0-0.2) K/mcL Sodium 131 L (136-145) mEq/L Potassium 3.9 (3.5-5.1) mEq/L Chloride 98 (98-107) mEq/L Carbon Dioxide 27 (23-29) mEq/L BUN 11 (8-23) mg/dL Creatinine 0.89 (0.60-1.20) mg/dL Est GFR ( Amer) > 60 (> 60) Est GFR (Non-Af Amer) > 60 (> 60) BUN/Creatinine Ratio 12 (6-26) Glucose 104 (70-105) mg/dL Calculated Osmolality 272 L (280-300) Lactic Acid (0.5-2.2) mmol/L Calcium 8.8 (8.6-10.3) mg/dL Total Bilirubin 1.0 (0.3-1.0) mg/dL Direct Bilirubin 0.1 (0.0-0.2) mg/dL Indirect Bilirubin 0.9 (0.0-1.2) mg/dL AST 22 (13-39) Units/L ALT 9 (7-52) Units/L Alkaline Phosphatase 88 (34-104) Units/L Troponin I (< 0.04) ng/mL B-Natriuretic Peptide (Less than 100) pg/mL Serum Total Protein 6.6 (6.4-8.9) g/dL Albumin 3.4 L (3.5-5.7) g/dL Globulin 3.2 (2.4-3.5) g/dL Albumin/Globulin Ratio 1.1 (1.1-2.2) Urine Color Yellow (Yellow) Urine Clarity Clear (Clear) Urine pH 5.5 (5.0-8.0) pH Units Ur Specific [place] 1.018 (1.010-1.025) Urine Protein Trace (Neg-Trace) mg/dL Urine Glucose (UA) Normal (Normal) mg/dL Urine Ketones Negative (Negative) mg/dL Urine Blood Large H (Negative) Urine Nitrite Negative (Negative) Urine Bilirubin Negative (Negative) Urine Urobilinogen Normal (Normal) mg/dL Ur Leukocyte Esterase Negative (Negative) Urine Microscopic RBC 50-100 H (0-3) per hpf Urine Microscopic WBC 0-3 (0-3) per hpf Ur Squamous Epith Cells Many H (None-Few) per lpf Urine Bacteria None Seen (None-Few) per hpf Hyaline Casts None Seen (None-Few) per lpf Ur Culture Indicated? NO (NO) 12/12/17 12/12/17 12/12/17 Range/Units 18:03 18:03 18:03 WBC (4.3-11.1) K/mcL RBC (3.82-4.97) M/mcL Hgb (11.5-15.4) g/dL Hct (35.3-44.9) % MCV (83.0-100.0) fL MCH (28.0-33.3) pg MCHC (31.6-35.5) g/dL RDW (11.5-14.5) % Plt Count (140-400) K/mcL MPV (9.4-12.4) fL Immature Gran % (0-4) % Seg Neutrophils % % Lymphocytes % % Monocytes % % Eosinophils % % Basophils % % Neutrophils # (1.6-8.9) K/mcL Lymphocytes # (0.6-4.6) K/mcL Monocytes # (0.0-1.3) K/mcL Eosinophils # (0.0-0.6) K/mcL Basophils # (0.0-0.2) K/mcL Sodium (136-145) mEq/L Potassium (3.5-5.1) mEq/L Chloride (98-107) mEq/L Carbon Dioxide (23-29) mEq/L BUN (8-23) mg/dL Creatinine (0.60-1.20) mg/dL Est GFR ( Amer) (> 60) Est GFR (Non-Af Amer) (> 60) BUN/Creatinine Ratio (6-26) Glucose (70-105) mg/dL Calculated Osmolality (280-300) Lactic Acid 1.3 (0.5-2.2) mmol/L Calcium (8.6-10.3) mg/dL Total Bilirubin (0.3-1.0) mg/dL Direct Bilirubin (0.0-0.2) mg/dL Indirect Bilirubin (0.0-1.2) mg/dL AST (13-39) Units/L ALT (7-52) Units/L Alkaline Phosphatase (34-104) Units/L Troponin I < 0.03 (< 0.04) ng/mL B-Natriuretic Peptide 47 (Less than 100) pg/mL Serum Total Protein (6.4-8.9) g/dL Albumin (3.5-5.7) g/dL Globulin (2.4-3.5) g/dL Albumin/Globulin Ratio (1.1-2.2) Urine Color (Yellow) Urine Clarity (Clear) Urine pH (5.0-8.0) pH Units Ur Specific [place] (1.010-1.025) Urine Protein (Neg-Trace) mg/dL Urine Glucose (UA) (Normal) mg/dL Urine Ketones (Negative) mg/dL Urine Blood (Negative) Urine Nitrite (Negative) Urine Bilirubin (Negative) Urine Urobilinogen (Normal) mg/dL Ur Leukocyte Esterase (Negative) Urine Microscopic RBC (0-3) per hpf Urine Microscopic WBC (0-3) per hpf Ur Squamous Epith Cells (None-Few) per lpf Urine Bacteria (None-Few) per hpf Hyaline Casts (None-Few) per lpf Ur Culture Indicated? (NO) - Radiology Data Radiology results reviewed: Yes I reviewed the patient's radiology results.
[2017-12-12 17:31] LABS: Bilirubin,Urine Negative (Negative); Blood,Urine Large (Negative); Clarity,Urine Clear (Clear); Color,Urine Yellow (Yellow); Glucose,Urine (UA) Normal (Normal); Ketones,Urine Negative (Negative); Leukocyte Esterase,Urine Negative (Negative); Nitrite,Urine Negative (Negative); PH,Urine 5.5 pH Units (5.0-8.0); Protein,Urine Trace mg/dL (Neg-Trace); Specific Gravity,Urine 1.018 (1.010-1.025); Urobilinogen,Urine Normal (Normal)
[2017-12-12 17:32] LABS: Bacteria,Urine None Seen per hpf (None-Few); Hyaline Casts,Urine None Seen per lpf (None-Few); RBC,Urine 50-100 per hpf (0-3); Squamous Epithelial Cell,Urine Many per lpf (None-Few); WBC,Urine 0-3 per hpf (0-3)
[2017-12-12] MEDS ORDERED: Acetaminophen 325 MG TABLET PO ONE (18:13)
[2017-12-12 18:17] LABS: Basophils % 0.3 %; Eosinophils % 0.1 %; Hematocrit 43.9 % (35.3-44.9); Hemoglobin 14.7 g/dL (11.5-15.4); Immature Granulocytes % 0.5 % (0-4); Lymphocytes # 0.8 K/mcL (0.6-4.6); Lymphocytes % 6.7 %; Mean Corpuscular HGB Conc 33.5 g/dL (31.6-35.5); Mean Corpuscular Volume 95.6 fL (83.0-100.0); Mean Platelet Volume 9.1 fL (9.4-12.4); Monocytes # 0.9 K/mcL (0.0-1.3); Monocytes % 8.1 %; Neutrophils # 9.7 K/mcL (1.6-8.9); Platelet Count 233 K/mcL (140-400); Red Blood Count 4.59 M/mcL (3.82-4.97); Red Cell Distribution Width 12.6 % (11.5-14.5); Segmented Neutrophils % 84.3 %
[2017-12-12] MEDS ORDERED: Azithromycin 500 MG in D5% in Water 250 ML IVPB ONE (18:29)
[2017-12-12 18:33] LABS: Alanine Aminotransferase 9 Units/L (7-52); Albumin 3.4 g/dL (3.5-5.7); Albumin/Globulin Ratio 1.1 (1.1-2.2); Alkaline Phosphatase 88 Units/L (34-104); Aspartate Amino Transferase 22 Units/L (13-39); BUN/Creatinine Ratio 12 (6-26); Bilirubin,Direct 0.1 mg/dL (0.0-0.2); Bilirubin,Indirect 0.9 mg/dL (0.0-1.2); Blood Urea Nitrogen 11 mg/dL (8-23); Calcium 8.8 mg/dL (8.6-10.3); Carbon Dioxide 27 mEq/L (23-29); Chloride 98 mEq/L (98-107); Globulin 3.2 g/dL (2.4-3.5); Glucose 104 mg/dL (70-105); Osmolality,Calculated 272 (280-300); Potassium 3.9 mEq/L (3.5-5.1); Sodium 131 mEq/L (136-145); Total Protein 6.6 g/dL (6.4-8.9); eGFR For African Americans > 60 (> 60); eGFR For Non-African Americans > 60 (> 60)
[2017-12-12] MEDS ORDERED: cefTRIAXone 1,000 MG in Water for inj. (sterile) 10 ML IVP ONE (18:48)
[2017-12-12] MEDS ORDERED: Naloxone 0.4 MG/ML INJ IVP PRN (20:22)
[2017-12-12] MEDS ORDERED: Ondansetron 4 MG/2 ML VIAL IVP PRN (20:22)
[2017-12-12] MEDS ORDERED: Acetaminophen 325 MG TABLET PO PRN (20:22)
[2017-12-12] MEDS ORDERED: *HR* OxyCODONE Immed Rel 5 MG TABLET PO PRN (20:22)
--- NOTE | 2017-12-12 20:27 | Internal Med History&Physical ---
Date of Encounter: 12/12/17 Time of Encounter: 20:25 Assessment and Plan (1) Community acquired pneumonia Current visit: Yes Status: Acute Acute metabolic encephalopathy likely secondary to Community-acquired pneumonia , unknown agent Chest x-ray shows bilateral small pleural effusions with perihiliar and bibasilar opacities Continue Rocephin and azithromycin, blood cultures IV fluids Omeprazole for GI prophylaxis and subcutaneous heparin for DVT prophylaxis. The patient will be admitted for observation. She is a DNR CC arrest DNI. Time spent on this admission 40 minutes Qualifiers: Laterality: unspecified laterality Qualified Code(s): J18.9 - Pneumonia, unspecified organism (2) Hyponatremia Current visit: Yes Status: Acute Monitor sodium (3) Alzheimer's dementia Current visit: No Status: Chronic Qualifiers: Alzheimer's disease onset: late-onset Dementia behavioral disturbance: without behavioral disturbance Qualified Code(s): G30.1 - Alzheimer's disease with late onset; F02.80 - Dementia in other diseases classified elsewhere without behavioral disturbance (4) GERD (gastroesophageal reflux disease) Current visit: No Status: Chronic Omeprazole Qualifiers: Esophagitis presence: esophagitis presence not specified Qualified Code(s) : K21.9 - Gastro-esophageal reflux disease without esophagitis (5) Osteopenia Current visit: No Status: Chronic Qualifiers: Osteopenia location: unspecified Qualified Code(s): M85.80 - Other specified disorders of bone density and structure, unspecified site (6) Acute metabolic encephalopathy Current visit: Yes Status: Acute Internal Medicine - H&P: HPI Chief complaint: Cough and weakness Admitted From: Emergency Dept History of present illness: Ms. Biswas is a 82 year old female with a past medical history of Alzheimer's dementia, osteoarthritis, GERD who was brought to the emergency room from home brought by family members as the patient has been coughing for the past 5 days, she was seen by her primary care physician who prescribed amoxicillin, patient has been taking these antibiotics for the past 4 days but not improving much. She had an unwitnessed fall last night and she cannot recall anything. CT scan of the head did not show any fracture or hemorrhage. X-ray of the pelvis is normal. Chest x-ray shows small bilateral pleural effusions with periceliac and bibasilar opacities compatible with pneumonia. Her white blood cell count is 11.5 sodium 131 and blood pressure dropped to 90/62. Patient was given Rocephin and azithromycin down in the emergency room. Not able to provide any history and most of the history was taken from the records and from the family. No sick contacts, no fevers. She has been extremely weak Past Med Surg Social Fam HX - Past Medical History Medical history: arthritis, GERD, osteoporosis, other (Alzheimer's dementia, anxiety) Psychiatric history: anxiety, other - Past Surgical History Surgical History: hysterectomy - Social History Smoking Status: Never smoker Smokeless Tobacco Status: No Alcohol use: none Drug use: none - Additional Family History Additional family history: Mother with breast cancer and father with CVA Internal Medicine - H&P: Meds Omeprazole [PriLOSEC] 20 mg PO DAILY 12/12/17 [History] 3 Allergy/AdvReac Type Severity Reaction Status Date / Time No Known Allergies Allergy Verified 09/11/16 07:47 All Systems PM: A 10-system review of systems was performed and is negative for pertinent findings except as documented above in the HPI. Review of systems: Denies any chest pain, other systems out of the 10 review of her negative - Constitutional Vitals: Temp Pulse Resp BP Pulse Ox 98.0 F 81 16 90/62 96 12/12/17 20:01 12/12/17 20:01 12/12/17 20:01 12/12/17 20:01 12/12/17 20:01 General appearance: Present: cachectic (Frail), A&O X 1 (Disoriented in time and place, does not remember her last thing either), underweight - Head Head exam: Present: atraumatic, normocephalic - Eye Eye exam: Present: PERRL, conjuntiva pink, sclera anicteric Pupils: Present: PERRL - Neck Neck exam general surgery: Present: supple, trachea midline. Absent: lymphadenopathy - Respiratory Respiratory exam: Present: CTAB, rales (Diffuse crackles, upper airway congestion). Absent: accessory muscle use, rhonchi, wheezes - Cardiovascular Cardiovascular exam: Present: RRR, +S1, +S2. Absent: diastolic murmur, gallop, rubs, systolic murmur - GI/Abdominal GI/Abdominal exam: Present: normal bowel sounds, soft, no peritoneal signs. Absent: distended, tenderness - Extremities Exam Extremities exam: Present: warm, radial pulses palpable and symmetrical. Absent : calf tenderness, cyanotic, pedal edema - Neurological Exam Neurological exam: Present: CN II-XII intact, no focal deficits. Absent: oriented X3, pronater drift, facial droop, speech deficit - Skin Skin exam: Present: dry, intact Internal Med - H&P Results - Labs CBC & Chem 7: 12/12/17 18:03 12/12/17 18:03
[2017-12-12] MEDS: *HR* Heparin 5,000 UNIT/ML VIAL SQ SCH (22:36)
[2017-12-12] MEDS: 0.9 % Sodium Chloride 1,000 ML IVC SCH (22:36)
[2017-12-13 04:24] LABS: Hematocrit 39.7 % (35.3-44.9); Mean Corpuscular Hemoglobin 31.8 pg (28.0-33.3); Mean Corpuscular Volume 96.4 fL (83.0-100.0); Mean Platelet Volume 9.6 fL (9.4-12.4); Platelet Count 216 K/mcL (140-400); Red Blood Count 4.12 M/mcL (3.82-4.97); Red Cell Distribution Width 12.6 % (11.5-14.5)
[2017-12-13 04:26] LABS: Hemoglobin 13.1 g/dL (11.5-15.4)
[2017-12-13 04:57] LABS: BUN/Creatinine Ratio 12 (6-26); Blood Urea Nitrogen 10 mg/dL (8-23); Calcium 8.1 mg/dL (8.6-10.3); Carbon Dioxide 27 mEq/L (23-29); Chloride 100 mEq/L (98-107); Glucose 89 mg/dL (70-105); Osmolality,Calculated 275 (280-300); Potassium 4.2 mEq/L (3.5-5.1); Sodium 133 mEq/L (136-145); eGFR For African Americans > 60 (> 60); eGFR For Non-African Americans > 60 (> 60)
[2017-12-13] MEDS: *HR* Heparin 5,000 UNIT/ML VIAL SQ SCH ×3 (06:20→21:27)
[2017-12-13] MEDS: Azithromycin 500 MG in D5% in Water 250 ML IVPB SCH (08:38)
[2017-12-13] MEDS: cefTRIAXone 1,000 MG in Water for inj. (sterile) 20 ML 10 ML IVP SCH (08:38)
[2017-12-13] MEDS: 0.9 % Sodium Chloride 1,000 ML IVC SCH (12:09)
[2017-12-13 14:41] LABS: Adenovirus Not Detected (Not Detect); Bordetella Pertussis Not Detected (Not Detect); Chlamydophila pneumoniae Not Detected (Not Detect); Coronavirus 229E Not Detected (Not Detect); Coronavirus HKU1 Not Detected (Not Detect); Coronavirus NL63 Not Detected (Not Detect); Coronavirus OC43 Not Detected (Not Detect); Human Metapneumovirus Not Detected (Not Detect); Human Rhinovirus/Enterovirus Not Detected (Not Detect); Influenza A Subtype 2009 H1 Not Detected (Not Detect); Influenza A Untypeable Not Detected (Not Detect); Influenza B Not Detected (Not Detect); Mycoplasma pneumoniae Not Detected (Not Detect); Parainfluenza Virus 1 Not Detected (Not Detect); Parainfluenza Virus 2 Not Detected (Not Detect); Parainfluenza Virus 3 Not Detected (Not Detect); Parainfluenza Virus 4 Not Detected (Not Detect); Respiratory Syncytial Virus Not Detected (Not Detect)
--- NOTE | 2017-12-13 16:08 | Internal Med Progress Note ---
Date of Encounter: 12/13/17 Time of Encounter: 13:00 - Assessment and plan (1) Community acquired pneumonia Current Visit: Yes Status: Acute Assessment and plan: presented with SOB, general weakness and malase. CXR with small bilateral pleural effusions as well as perihilar and bibasilar opacities, concerning for edema versus infection. WBC 11 K, lactic acid normal. Stop IV fluids to avoid fluid overload. Continue IV ceftriaxone, azithromycin. Respiratory PCR, urinary antigens pending. Qualifiers: Laterality: left Lung location: lower lobe of lung Qualified Code(s): J18.1 - Lobar pneumonia, unspecified organism (2) Dementia Current Visit: Yes Status: Acute Assessment and plan: per hx. mentation at baseline per family. Supportive care Qualifiers: Dementia type: unspecified type Dementia behavioral disturbance: without behavioral disturbance Qualified Code(s): F03.90 - Unspecified dementia without behavioral disturbance (3) Hyponatremia Current Visit: Yes Status: Acute Assessment and plan: Na 131 on arrival. Improved with IV fluids. Neurologically intact. Na 133 on (4) GERD (gastroesophageal reflux disease) Current Visit: No Status: Chronic Assessment and plan: per hx. Cont home PPI Qualifiers: Esophagitis presence: esophagitis presence not specified Qualified Code(s) : K21.9 - Gastro-esophageal reflux disease without esophagitis (5) DVT prophylaxis Current Visit: Yes Status: Acute Assessment and plan: heparin - Subjective Interval history: Seen and examined at bedside; patient is new to me. Information obtained from chart review, family and patient although patient has dementia amd does not provide details. Son at bedside and reports patient is significantly improved. Patient apparently lives with son and has 24 hour care. Patient says she feels "okay", she is not sure if she had a cough or fevers/chills. - Constitutional Vitals: Temp Pulse Resp BP Pulse Ox 98.1 F 63 17 119/76 96 12/13/17 15:53 12/13/17 15:53 12/13/17 15:53 12/13/17 15:53 12/13/17 15:53 General appearance: Present: cachectic (Frail), A&O X 1 (Disoriented in time and place, does not remember her last thing either), no acute distress, underweight - Head Head exam: Present: atraumatic, normocephalic - Eye Eye exam: Present: PERRL, conjuntiva pink, sclera anicteric Pupils: Present: PERRL - Neck Neck exam general surgery: Present: supple, trachea midline. Absent: lymphadenopathy - Respiratory Respiratory exam: Present: CTAB. Absent: accessory muscle use, rales, rhonchi, wheezes - Cardiovascular Cardiovascular exam: Present: RRR, +S1, +S2. Absent: diastolic murmur, gallop, rubs, systolic murmur - GI/Abdominal GI/Abdominal exam: Present: normal bowel sounds, soft, no peritoneal signs. Absent: distended, tenderness - Extremities Exam Extremities exam: Present: warm, radial pulses palpable and symmetrical. Absent : calf tenderness, cyanotic, pedal edema - Neurological Exam Neurological exam: Present: CN II-XII intact, oriented X3, no focal deficits. Absent: pronater drift, facial droop, speech deficit - Skin Skin exam: Present: dry, intact Internal Medicine: Result - Labs CBC & Chem 7: 12/13/17 03:49 12/13/17 03:49 Labs: Short CBC 12/13/17 Range/Units 03:49 WBC 9.9 (4.3-11.1) K/mcL Hgb 13.1 D (11.5-15.4) g/dL Hct 39.7 (35.3-44.9) % Plt Count 216 (140-400) K/mcL [facility] 12/13/17 03:49 Sodium 133 L Potassium 4.2 Chloride 100 Carbon Dioxide 27 BUN 10 Creatinine 0.84 Glucose 89 Calcium 8.1 L Consult Discharge Plan - Plan Referrals: NONE,PCP [Primary Care Provider] -
[2017-12-14] MEDS: *HR* Heparin 5,000 UNIT/ML VIAL SQ SCH ×3 (06:02→22:24)
[2017-12-14] MEDS: cefTRIAXone 1,000 MG in Water for inj. (sterile) 20 ML 10 ML IVP SCH (07:54)
[2017-12-14] MEDS: Azithromycin 500 MG in D5% in Water 250 ML IVPB SCH (07:54)
--- NOTE | 2017-12-14 15:16 | Internal Med Progress Note ---
Date of Encounter: 12/14/17 Time of Encounter: 13:30 - Assessment and plan (1) Community acquired pneumonia Current Visit: Yes Status: Acute Assessment and plan: presented with SOB, general weakness and malase. CXR with small bilateral pleural effusions as well as perihilar and bibasilar opacities, concerning for edema versus infection. WBC 11 K, lactic acid normal. Stop IV fluids to avoid fluid overload. Resp PCR negative. Continue IV ceftriaxone, azithromycin. Urinary antigens pending. Qualifiers: Laterality: left Lung location: lower lobe of lung Qualified Code(s): J18.1 - Lobar pneumonia, unspecified organism (2) Dementia Current Visit: Yes Status: Acute Assessment and plan: per hx. mentation at baseline per family. Supportive care Qualifiers: Dementia type: unspecified type Dementia behavioral disturbance: without behavioral disturbance Qualified Code(s): F03.90 - Unspecified dementia without behavioral disturbance (3) Hyponatremia Current Visit: Yes Status: Acute Assessment and plan: Na 131 on arrival. Improved with IV fluids. Neurologically intact. Na 133 on . Repeat CMP pending (4) GERD (gastroesophageal reflux disease) Current Visit: No Status: Chronic Assessment and plan: per hx. Cont home PPI Qualifiers: Esophagitis presence: esophagitis presence not specified Qualified Code(s) : K21.9 - Gastro-esophageal reflux disease without esophagitis (5) DVT prophylaxis Current Visit: Yes Status: Acute Assessment and plan: heparin - Subjective Interval history: Seen and examined at bedside; sitting up in chair bedside eating lunch. She has dementia and is pleasantly confused but able to answer simple questions. Says she feels better and would like to go home if possible. Son and daughter- in-law at bedside and feels she needs 1 more night in the hospital. Patient is not sure if she had fever or chills. Family reports intermittent nonproductive cough. - Constitutional Vitals: Temp Pulse Resp BP Pulse Ox 98.2 F 70 16 103/65 94 12/14/17 11:32 12/14/17 11:32 12/14/17 11:32 12/14/17 11:32 12/14/17 11:32 General appearance: Present: cachectic (Frail), A&O X 1 (Disoriented in time and place, does not remember her last thing either), no acute distress, underweight - Head Head exam: Present: atraumatic, normocephalic - Eye Eye exam: Present: PERRL, conjuntiva pink, sclera anicteric Pupils: Present: PERRL - Neck Neck exam general surgery: Present: supple, trachea midline. Absent: lymphadenopathy - Respiratory Respiratory exam: Present: CTAB. Absent: accessory muscle use, rales, rhonchi, wheezes - Cardiovascular Cardiovascular exam: Present: RRR, +S1, +S2. Absent: diastolic murmur, gallop, rubs, systolic murmur - GI/Abdominal GI/Abdominal exam: Present: normal bowel sounds, soft, no peritoneal signs. Absent: distended, tenderness - Extremities Exam Extremities exam: Present: warm, radial pulses palpable and symmetrical. Absent : calf tenderness, cyanotic, pedal edema - Neurological Exam Neurological exam: Present: CN II-XII intact, oriented X3, no focal deficits. Absent: pronater drift, facial droop, speech deficit - Skin Skin exam: Present: dry, intact Internal Medicine: Result - Labs CBC & Chem 7: 12/13/17 03:49 12/13/17 03:49 Consult Discharge Plan - Plan Referrals: NONE,PCP [Primary Care Provider] -
[2017-12-14 16:31] LABS: BUN/Creatinine Ratio 9 (6-26); Blood Urea Nitrogen 7 mg/dL (8-23); Calcium 8.7 mg/dL (8.6-10.3); Carbon Dioxide 26 mEq/L (23-29); Chloride 100 mEq/L (98-107); Glucose 127 mg/dL (70-105); Osmolality,Calculated 276 (280-300); Potassium 3.7 mEq/L (3.5-5.1); Sodium 133 mEq/L (136-145); eGFR For African Americans > 60 (> 60); eGFR For Non-African Americans > 60 (> 60)
[2017-12-15] MEDS: *HR* Heparin 5,000 UNIT/ML VIAL SQ SCH (05:41)
[2017-12-15] MEDS: Azithromycin 500 MG in D5% in Water 250 ML IVPB SCH (09:24)
[2017-12-15] MEDS: cefTRIAXone 1,000 MG in Water for inj. (sterile) 20 ML 10 ML IVP SCH (09:25)
--- NOTE | 2017-12-15 10:02 | Discharge Summary ---
Date of Encounter: 12/15/17 Time of Encounter: 10:02 - Discharge Diagnosis (1) Community acquired pneumonia Priority: Primary Status: Acute Comments: presented with SOB, general weakness and malase. CXR with small bilateral pleural effusions as well as perihilar and bibasilar opacities, concerning for edema versus infection. Clinically appeared to be pneumonia with rhonchorous lung sounds, shortness of breath and cough. WBC 11 K, lactic acid normal. Resp PCR negative. Urinary antigens ordered but not obtained. Received 3 doses IV ceftriaxone, azithromycin. Discharge home on Levaquin, to complete a total 7 day course. Recommended follow-up with PCP within 1-2 weeks. Qualifiers: Laterality: left Lung location: lower lobe of lung Qualified Code(s): J18.1 - Lobar pneumonia, unspecified organism (2) Dementia Priority: Secondary Status: Chronic Comments: per hx. Mentation at baseline per family however they have noticed a general decline over the last month. Outpatient referral to neurology. Qualifiers: Dementia type: unspecified type Dementia behavioral disturbance: without behavioral disturbance Qualified Code(s): F03.90 - Unspecified dementia without behavioral disturbance (3) Hyponatremia Priority: Primary Status: Acute Comments: mild. Na 133. Asymptomatic. Neurologically intact. Recommend repeat CMP with PCP within one week (4) GERD (gastroesophageal reflux disease) Priority: Primary Status: Chronic Comments: per hx. Cont home PPI Qualifiers: Esophagitis presence: esophagitis presence not specified Qualified Code(s) : K21.9 - Gastro-esophageal reflux disease without esophagitis - Discharge Medications Prescriptions: levoFLOXacin [Levaquin] 750 mg PO DAILY #4 tablet Home Medications: Omeprazole [PriLOSEC] 20 mg PO DAILY 12/12/17 [History] levoFLOXacin [Levaquin] 750 mg PO DAILY #4 tablet 12/15/17 [Rx] Allergies/Adverse Reactions: 3 Allergy/AdvReac Type Severity Reaction Status Date / Time No Known Allergies Allergy Verified 09/11/16 07:47 Date of admission: 12/12/17 19:11 Primary care physician: PCP NONE Consults: 12/12/17 20:24 Consult to Occupational Therapy [CONS] Routine Comment: Evaluate, develop and implement POC Reason for Consult: eval Consult to Physical Therapy [CONS] Routine Comment: Evaluate, develop and implement POC Reason for Consult: eval Consult to Musculoskeletal Physician [CONS] Routine Reason for SW Consult: eval Discharging clinician: Alexia Mcnulty Anticipated date of discharge: 12/15/17 - Patient Status Disposition: Home, Self-Care Condition: Fair Functional capacity at discharge: independent ambulation Overall status at discharge: patient is progressing back to baseline - Discharge Instructions Instructions: Community-acquired Pneumonia (DC), Levofloxacin (By mouth) Follow Up With: NONE,PCP [Primary Care Provider] - (Please call your PCP to make a follow-up appointment within 1-2 weeks if this has not already been done) Jake Carranza DO [Partnered Physician] - (Referral to neurology has been made. Please call the office if you do not hear from them within 1-2 weeks.) - Diet and Activity Activity: increase activity as tolerated Diet: advance to your usual diet Interval History: Seen and examined at bedside. Patient has dementia and is pleasantly confused however she is able to converse and answer questions appropriately. Says she feels okay woodlike to go home. Son at bedside and feels patient significantly improved and he feels comfortable her returning to home with him. She will have 24-hour care. He did inquire about Alzheimer's/dementia specialist and would like referral to neurology. Patient denied complaints of chest pain shortness of breath or cough even though she does have a cough on exam. Hospital course: See assessment and plan for hospital course - Time Spent with Patient Total time spent providing and/or coordinating discharge services: - Constitutional Vitals: Temp Pulse Resp BP Pulse Ox 98.5 F 69 17 118/76 93 12/15/17 07:21 12/15/17 07:21 12/15/17 07:21 12/15/17 07:21 12/15/17 07:21 General appearance: Present: cachectic (Frail), A&O X 1 (Disoriented in time and place, does not remember her last thing either), no acute distress, underweight - Head Head exam: Present: atraumatic, normocephalic - Eye Eye exam: Present: PERRL, conjuntiva pink, sclera anicteric Pupils: Present: PERRL - Neck Neck exam general surgery: Present: supple, trachea midline. Absent: lymphadenopathy - Respiratory Respiratory exam: Present: rhonchi. Absent: accessory muscle use, rales, wheezes Additional comments: Lungs sounds with scattered rhonchi, no wheezing. Improved from yesterday's exam. - Cardiovascular Cardiovascular exam: Present: RRR, +S1, +S2. Absent: diastolic murmur, gallop, rubs, systolic murmur - GI/Abdominal GI/Abdominal exam: Present: normal bowel sounds, soft, no peritoneal signs. Absent: distended, tenderness - Extremities Exam Extremities exam: Present: warm, radial pulses palpable and symmetrical. Absent : calf tenderness, cyanotic, pedal edema - Neurological Exam Neurological exam: Present: CN II-XII intact, oriented X3, no focal deficits. Absent: pronater drift, facial droop, speech deficit - Skin Skin exam: Present: dry, intact
[2017-12-15 11:29] VITALS: BP 110/69
--- NOTE | 2017-12-16 15:30 | Electrocardiograph Report ---
[place] [id number] Test Date: 2017-12-12 Pat Name: Polly Biswas Department: 104 Room: 3B13 Gender: F Transferrer: MECHELLE : 1935 Requested By: Jake Jean Baptiste Order Number: [id number] Reading MD: Brad Weston DO Measurements Intervals [place] Rate: 88 P: 28 WY: 130 QRS: -16 QRSD: 80 T: 42 QT: 342 QTc: 388 Interpretive Statements SINUS RHYTHM POSSIBLE RIGHT VENTRICULAR CONDUCTION DELAY Electronically Signed On 12-16-2017 15:29:24 EST by Brad Weston DO
== END 2017-12-15 12:45 | disposition home or self-care (01) ==
LOC: EMEROO 15:37 → 3BNU 15:37
PROVIDERS: ADMIT Internal Medicine; ATTEND Registered Nurse

== ENCOUNTER 2021-04-28 16:03 | Inpatient (IN) ==
[2021-04-28] MEDS ORDERED: cefTRIAXone 1,000 MG in Water for inj. (sterile) 10 ML IVP ONE (16:39)
[2021-04-28] MEDS ORDERED: 0.9 % Sodium Chloride 1,000 ML IVC ONE ×2 (16:39→16:40)
[2021-04-28 17:14] LABS: Basophils % 0.1 %; Hematocrit 51.9 % (35.3-44.9); Hemoglobin 16.5 g/dL (11.5-15.4); Immature Granulocytes % 0.5 % (0-4); Lymphocytes # 0.9 K/mcL (0.6-4.6); Lymphocytes % 5.1 %; Mean Corpuscular HGB Conc 31.8 g/dL (31.6-35.5); Mean Corpuscular Hemoglobin 32.3 pg (28.0-33.3); Mean Corpuscular Volume 101.6 fL (83.0-100.0); Mean Platelet Volume 10.1 fL (9.4-12.4); Monocytes % 9.1 %; Neutrophils # 14.5 K/mcL (1.6-8.9); Platelet Count 163 K/mcL (140-400); Red Blood Count 5.11 M/mcL (3.82-4.97); Red Cell Distribution Width 12.6 % (11.5-14.5); Segmented Neutrophils % 85.2 %
[2021-04-28 17:16] LABS: Monocytes # 1.6 K/mcL (0.0-1.3)
[2021-04-28 17:35] LABS: Bacteria,Urine Few per hpf (None-Few); Bilirubin,Urine Negative (Negative); Blood,Urine Moderate (Negative); Clarity,Urine Clear (Clear); Color,Urine Yellow (Yellow); Glucose,Urine (UA) Normal (Normal); Ketones,Urine Trace mg/dL (Negative); Leukocyte Esterase,Urine Negative (Negative); Mucus,Urine Few per lpf (None-Few); Nitrite,Urine Negative (Negative); Protein,Urine 30 mg/dL (Neg-Trace); Specific Gravity,Urine 1.022 (1.010-1.025); Squamous Epithelial Cell,Urine Few per hpf (None-Few); Urobilinogen,Urine Normal (Normal); WBC,Urine 0-3 per hpf (0-3)
[2021-04-28 17:36] LABS: Platelet Estimate Normal (Normal)
[2021-04-28 17:37] LABS: Large Platelets Present (Not Present)
[2021-04-28 17:57] LABS: Troponin I 0.03 ng/mL (< 0.04)
[2021-04-28] MEDS ORDERED: Isovue-370 500 ML BOTTLE IVP ONE (18:51)
[2021-04-28 18:52] LABS: Alanine Aminotransferase 9 Units/L (7-52); Albumin 3.4 g/dL (3.5-5.7); Albumin/Globulin Ratio 1.1 (1.1-2.2); Alkaline Phosphatase 89 Units/L (34-104); Aspartate Amino Transferase 25 Units/L (13-39); BUN/Creatinine Ratio 22 (6-26); Bilirubin,Total 0.8 mg/dL (0.3-1.0); Blood Urea Nitrogen 19 mg/dL (8-23); Calcium 9.3 mg/dL (8.6-10.3); Carbon Dioxide 20 mEq/L (23-29); Chloride 102 mEq/L (98-107); Globulin 3.1 g/dL (2.4-3.5); Glucose 120 mg/dL (70-105); Osmolality,Calculated 291 (280-300); Potassium 4.6 mEq/L (3.5-5.1); Sodium 139 mEq/L (136-145); Total Protein 6.5 g/dL (6.4-8.9); eGFR For African Americans > 60 (> 60); eGFR For Non-African Americans > 60 (> 60)
[2021-04-28] MEDS ORDERED: Metoclopramide 10 MG/2 ML VIAL IVP ONE (21:23)
[2021-04-28] MEDS ORDERED: Ondansetron 4 MG/2 ML VIAL IVP PRN (21:28)
[2021-04-28] MEDS ORDERED: Ringers Solution, Lactated 1,000 ML IVC ONE (21:33)
[2021-04-28] MEDS ORDERED: Bisacodyl 10 MG RECTAL SUPPOSITORY RC ONE (21:36)
[2021-04-28] MEDS: MetroNIDAZOLE 500 MG/100 ML 500 MG/100 ML BAG IVPB SCH (23:42)
[2021-04-28] MEDS: Ringers Solution, Lactated 1,000 ML IVC SCH (23:49)
[2021-04-29 00:46] LABS: Hematocrit 49.9 % (35.3-44.9); Hemoglobin 15.9 g/dL (11.5-15.4); Mean Corpuscular HGB Conc 31.9 g/dL (31.6-35.5); Mean Corpuscular Hemoglobin 32.7 pg (28.0-33.3); Mean Corpuscular Volume 102.7 fL (83.0-100.0); Mean Platelet Volume 10.2 fL (9.4-12.4); Platelet Count 155 K/mcL (140-400); Red Blood Count 4.86 M/mcL (3.82-4.97); Red Cell Distribution Width 12.9 % (11.5-14.5)
[2021-04-29 00:53] LABS: INR 1.3; Prothrombin Time 14.9 Seconds (9.4-12.1)
[2021-04-29 01:04] LABS: BUN/Creatinine Ratio 23 (6-26); Blood Urea Nitrogen 18 mg/dL (8-23); Calcium 8.4 mg/dL (8.6-10.3); Carbon Dioxide 22 mEq/L (23-29); Chloride 108 mEq/L (98-107); Glucose 104 mg/dL (70-105); Osmolality,Calculated 294 (280-300); Potassium 4.5 mEq/L (3.5-5.1); Sodium 141 mEq/L (136-145); eGFR For African Americans > 60 (> 60); eGFR For Non-African Americans > 60 (> 60)
[2021-04-29] MEDS: MetroNIDAZOLE 500 MG/100 ML 500 MG/100 ML BAG IVPB SCH (08:57)
[2021-04-29] MEDS ORDERED: cefTRIAXone 2,000 MG in Water for inj. (sterile) 20 ML IVP SCH (09:00)
[2021-04-29] MEDS ORDERED: Lidocaine HCL 4 ML Topical Solution (Laryng-O-Jet Kit Sterile Pak) TP ONE (10:32)
[2021-04-29] MEDS ORDERED: *HR* Propofol 200 MG/20 ML VIAL IVP ONE (10:32)
[2021-04-29] MEDS ORDERED: Ondansetron 4 MG/2 ML VIAL ONE (10:32)
[2021-04-29] MEDS ORDERED: Lidocaine -MPF 2% 2 ML VIAL ONE (10:32)
[2021-04-29] MEDS ORDERED: *HR* FentaNYL (PF) 100 MCG/2 ML VIAL ONE ×2 (10:32→12:40)
[2021-04-29] MEDS ORDERED: *HR* Rocuronium Bromide 50 MG/5 ML VIAL ONE (10:32)
[2021-04-29] MEDS ORDERED: CefOXitin 1,000 MG VIAL ONE (10:40)
[2021-04-29] MEDS ORDERED: Heparin 1,000 UNITS/500 mL 500 ML ONE (10:43)
[2021-04-29] MEDS ORDERED: Albumin Human 5% 25.0 GM/500 ML IV.SOLN ONE (11:09)
[2021-04-29] MEDS ORDERED: *HR* Vasopressin 20 UNIT/ML VIAL ONE (11:09)
[2021-04-29] MEDS ORDERED: *HR* Etomidate 40 MG/20 ML VIAL IVP ONE (11:45)
[2021-04-29] MEDS ORDERED: *HR* Midazolam HCl 2 MG/2 ML VIAL ONE (12:29)
[2021-04-29] MEDS ORDERED: EPHEDrine 50 MG/ML VIAL ONE (14:01)
[2021-04-29] MEDS ORDERED: Artificial Tears SOLN 15 ML BOTTLE BOTH EYES PRN (14:36)
[2021-04-29] MEDS ORDERED: Ipratropium/Albuterol Neb 3 ML IH PRN (14:40)
[2021-04-29] MEDS ORDERED: Albuterol 2.5 MG/3 ML NEBULIZER IH PRN (14:40)
[2021-04-29] MEDS: FentaNYL (PF) 1,000 MCG/100 ML IV.SOLN IVC SCH (15:03)
[2021-04-29] MEDS: Norepinephrine 4 MG/254 ML IV.SOLN IVC SCH ×2 (15:19→22:30)
[2021-04-29 15:26] LABS: ABG Base Excess 2 mEq/L (-2 to 3); ABG HCO3 26 mEq/L (21-27); ABG Oxygen Saturation 100 % (95-98); ABG PCO2 39 mmHg (35-45); ABG PH 7.43 pH Units (7.32-7.45); ABG PO2 420 mmHg (85-104); ABG TCO2 27 mEq/L (20-26); Blood Gas Modality ASSIST CONTROL; Blood Gas VT 300 cc
[2021-04-29] MEDS: Piperacillin/Tazobactam 3.375 GM in 0.9 % Sodium Chloride Mini Bag 100 ML IVPB SCH ×2 (16:19→23:09)
[2021-04-29] MEDS: Albumin Human 5% 12.5 GM/250 ML IV.SOLN IVC SCH ×2 (16:21→18:33)
[2021-04-29] MEDS: Artificial Tears SOLN 15 ML BOTTLE BOTH EYES SCH ×3 (16:21→23:09)
[2021-04-29 16:22] LABS: Red Cell Distribution Width 12.9 % (11.5-14.5)
[2021-04-29 16:24] LABS: Hematocrit 37.6 % (35.3-44.9); Immature Platelets 3.4 % (1.1-6.1); Mean Corpuscular HGB Conc 32.2 g/dL (31.6-35.5); Mean Corpuscular Hemoglobin 32.2 pg (28.0-33.3); Mean Platelet Volume 10.5 fL (9.4-12.4); Platelet Count 136 K/mcL (140-400); Red Blood Count 3.76 M/mcL (3.82-4.97); White Blood Count 9.4 K/mcL (4.3-11.1)
[2021-04-29 16:27] LABS: Hemoglobin 12.1 g/dL (11.5-15.4)
[2021-04-29 16:35] LABS: VBG Ionized Calcium 1.11 mmol/L (1.15-1.35)
[2021-04-29 16:41] LABS: Alanine Aminotransferase 9 Units/L (7-52); Albumin 2.9 g/dL (3.5-5.7); Albumin/Globulin Ratio 1.7 (1.1-2.2); Alkaline Phosphatase 57 Units/L (34-104); Aspartate Amino Transferase 28 Units/L (13-39); BUN/Creatinine Ratio 27 (6-26); Bilirubin,Total 0.7 mg/dL (0.3-1.0); Blood Urea Nitrogen 16 mg/dL (8-23); Carbon Dioxide 27 mEq/L (23-29); Chloride 108 mEq/L (98-107); Globulin 1.7 g/dL (2.4-3.5); Glucose 101 mg/dL (70-105); Magnesium 1.6 mg/dL (1.6-2.6); Osmolality,Calculated 295 (280-300); Phosphorous 2.7 mg/dL (2.7-4.5); Potassium 3.5 mEq/L (3.5-5.1); Sodium 142 mEq/L (136-145); Total Protein 4.6 g/dL (6.4-8.9); eGFR For African Americans > 60 (> 60); eGFR For Non-African Americans > 60 (> 60)
[2021-04-29 16:45] LABS: Lymphocytes # 0.9 K/mcL (0.6-4.6); Monocytes # 0.4 K/mcL (0.0-1.3); Neutrophils # 8.1 K/mcL (1.6-8.9)
[2021-04-29] MEDS: Calcium Gluconate 1gm/50mL 1 GM/50 ML BAG IVPB SCH ×2 (18:32→19:55)
[2021-04-29] MEDS: Budesonide/Formoterol 160/4.5 1 PUFF INH IH SCH (19:54)
[2021-04-29] MEDS: Chlorhexidine Rinse 15 ML MOUTHWASH MM SCH (19:55)
[2021-04-29] MEDS ORDERED: Budesonide/Formoterol 160/4.5 1 PUFF INH IH ONE (19:56)
[2021-04-30] MEDS: Norepinephrine 4 MG/254 ML IV.SOLN IVC SCH ×6 (02:25→16:17)
[2021-04-30] MEDS: FentaNYL (PF) 1,000 MCG/100 ML IV.SOLN IVC SCH ×2 (03:40→18:07)
[2021-04-30 03:41] LABS: VBG Ionized Calcium 1.19 mmol/L (1.15-1.35)
[2021-04-30 03:42] LABS: Hematocrit 37.8 % (35.3-44.9); Hemoglobin 12.2 g/dL (11.5-15.4); Immature Platelets 3.6 % (1.1-6.1); Mean Corpuscular HGB Conc 32.3 g/dL (31.6-35.5); Mean Corpuscular Hemoglobin 32.4 pg (28.0-33.3); Mean Corpuscular Volume 100.5 fL (83.0-100.0); Mean Platelet Volume 10.1 fL (9.4-12.4); Platelet Count 154 K/mcL (140-400); Red Blood Count 3.76 M/mcL (3.82-4.97); Red Cell Distribution Width 13.1 % (11.5-14.5); White Blood Count 9.3 K/mcL (4.3-11.1)
[2021-04-30 03:59] LABS: Alanine Aminotransferase 9 Units/L (7-52); Albumin 3.1 g/dL (3.5-5.7); Albumin/Globulin Ratio 1.8 (1.1-2.2); Alkaline Phosphatase 55 Units/L (34-104); Aspartate Amino Transferase 27 Units/L (13-39); BUN/Creatinine Ratio 21 (6-26); Blood Urea Nitrogen 14 mg/dL (8-23); Calcium 8.4 mg/dL (8.6-10.3); Carbon Dioxide 25 mEq/L (23-29); Chloride 110 mEq/L (98-107); Globulin 1.7 g/dL (2.4-3.5); Glucose 72 mg/dL (70-105); Magnesium 2.2 mg/dL (1.6-2.6); Osmolality,Calculated 291 (280-300); Phosphorous 2.4 mg/dL (2.7-4.5); Potassium 4.3 mEq/L (3.5-5.1); Sodium 141 mEq/L (136-145); Total Protein 4.8 g/dL (6.4-8.9); eGFR For African Americans > 60 (> 60); eGFR For Non-African Americans > 60 (> 60)
[2021-04-30] MEDS: Artificial Tears SOLN 15 ML BOTTLE BOTH EYES SCH ×5 (04:03→20:02)
[2021-04-30 04:06] LABS: Lymphocytes # 1.9 K/mcL (0.6-4.6); Monocytes # 0.2 K/mcL (0.0-1.3); Neutrophils # 7.3 K/mcL (1.6-8.9); Platelet Estimate Normal (Normal)
[2021-04-30] MEDS ORDERED: *HR* Dextrose 50 % in Water (Vial) 50 ML VIAL ONE (04:26)
[2021-04-30] MEDS ORDERED: *HR* Dextrose 50 % in Water (Vial) 50 ML VIAL IVP ONE (04:27)
[2021-04-30 04:58] LABS: ABG Base Excess 1 mEq/L (-2 to 3); ABG HCO3 27 mEq/L (21-27); ABG Oxygen Saturation 96 % (95-98); ABG PCO2 49 mmHg (35-45); ABG PH 7.35 pH Units (7.32-7.45); ABG PO2 83 mmHg (85-104); ABG TCO2 29 mEq/L (20-26); Blood Gas VT 300 cc
[2021-04-30] MEDS: Budesonide/Formoterol 160/4.5 1 PUFF INH IH SCH ×2 (07:34→19:31)
[2021-04-30] MEDS: Pantoprazole 40 MG VIAL IVP SCH (07:39)
[2021-04-30] MEDS: Chlorhexidine Rinse 15 ML MOUTHWASH MM SCH ×2 (07:40→20:02)
[2021-04-30] MEDS: Piperacillin/Tazobactam 3.375 GM in 0.9 % Sodium Chloride Mini Bag 100 ML IVPB SCH ×2 (07:40→16:09)
[2021-04-30] MEDS: Ringers Solution, Lactated 1,000 ML IVC SCH (08:48)
[2021-04-30] MEDS ORDERED: Isovue-370 500 ML BOTTLE IVP ONE (10:16)
[2021-04-30] MEDS ORDERED: Calcium Gluconate 1gm/50mL 1 GM/50 ML BAG IVPB PRN (10:37)
[2021-04-30] MEDS ORDERED: Potassium Chloride 40 MEQ/200 ML BAG IVPB PRN (10:37)
[2021-04-30] MEDS ORDERED: Potassium Phosphate 44 MEQ in 0.9 % Sodium Chloride 250 ML IVPB PRN (10:37)
[2021-04-30] MEDS ORDERED: D10% in Water 500 ML IVC PRN (10:38)
[2021-04-30] MEDS: Insulin LISPRO 300 UNITS/3 ML VIAL SUBQ SCH ×3 (12:00→20:02)
[2021-04-30] MEDS ORDERED: Clinimix E 5%-15% SOLUTION 2,000 ML with MVI, adult with vitamin K 10 ML IVC SCH (17:00)
[2021-04-30] MEDS ORDERED: Norepinephrine 4 MG/254 ML IV.SOLN IVC SCH (18:32)
[2021-04-30 20:39] LABS: BUN/Creatinine Ratio 18 (6-26); Blood Urea Nitrogen 13 mg/dL (8-23); Calcium 7.5 mg/dL (8.6-10.3); Carbon Dioxide 24 mEq/L (23-29); Chloride 113 mEq/L (98-107); Glucose 156 mg/dL (70-105); Magnesium 1.9 mg/dL (1.6-2.6); Osmolality,Calculated 299 (280-300); Potassium 3.7 mEq/L (3.5-5.1); Sodium 143 mEq/L (136-145); eGFR For African Americans > 60 (> 60); eGFR For Non-African Americans > 60 (> 60)
[2021-04-30] MEDS: Norepinephrine 8 MG in 0.9 % Sodium Chloride 250 ML IVC SCH (23:05)
[2021-05-01] MEDS: Piperacillin/Tazobactam 3.375 GM in 0.9 % Sodium Chloride Mini Bag 100 ML IVPB SCH ×4 (00:08→23:57)
[2021-05-01] MEDS: Insulin LISPRO 300 UNITS/3 ML VIAL SUBQ SCH ×7 (00:08→23:56)
[2021-05-01] MEDS: Artificial Tears SOLN 15 ML BOTTLE BOTH EYES SCH ×7 (00:08→23:55)
[2021-05-01 04:19] LABS: ABG Base Excess -2 mEq/L (-2 to 3); ABG HCO3 24 mEq/L (21-27); ABG Oxygen Saturation 95 % (95-98); ABG PCO2 45 mmHg (35-45); ABG PH 7.33 pH Units (7.32-7.45); ABG PO2 84 mmHg (85-104); ABG TCO2 25 mEq/L (20-26); Blood Gas Modality ASSIST CONTROL; Blood Gas VT 300 cc
[2021-05-01 04:29] LABS: VBG Ionized Calcium 1.15 mmol/L (1.15-1.35)
[2021-05-01 04:38] LABS: Hemoglobin 10.9 g/dL (11.5-15.4); Mean Corpuscular HGB Conc 31.1 g/dL (31.6-35.5); Mean Corpuscular Hemoglobin 32.3 pg (28.0-33.3); Mean Corpuscular Volume 103.9 fL (83.0-100.0); Mean Platelet Volume 9.9 fL (9.4-12.4); Platelet Count 114 K/mcL (140-400); Red Blood Count 3.37 M/mcL (3.82-4.97); Red Cell Distribution Width 13.4 % (11.5-14.5); White Blood Count 8.3 K/mcL (4.3-11.1)
[2021-05-01 04:53] LABS: BUN/Creatinine Ratio 20 (6-26); Blood Urea Nitrogen 14 mg/dL (8-23); Calcium 7.4 mg/dL (8.6-10.3); Carbon Dioxide 24 mEq/L (23-29); Chloride 114 mEq/L (98-107); Glucose 154 mg/dL (70-105); Magnesium 1.9 mg/dL (1.6-2.6); Osmolality,Calculated 300 (280-300); Phosphorous 3.4 mg/dL (2.7-4.5); Potassium 3.6 mEq/L (3.5-5.1); Sodium 143 mEq/L (136-145); Triglycerides 84 mg/dL (< 150); eGFR For African Americans > 60 (> 60); eGFR For Non-African Americans > 60 (> 60)
[2021-05-01] MEDS: FentaNYL (PF) 1,000 MCG/100 ML IV.SOLN IVC SCH ×2 (05:15→15:32)
[2021-05-01] MEDS: Norepinephrine 8 MG in 0.9 % Sodium Chloride 250 ML IVC SCH ×3 (05:27→18:49)
[2021-05-01 05:50] LABS: Eosinophils # 0.2 K/mcL (0.0-0.6); Monocytes # 0.2 K/mcL (0.0-1.3); Neutrophils # 6.3 K/mcL (1.6-8.9)
[2021-05-01 05:51] LABS: Platelet Estimate Slight Decrease (Normal)
[2021-05-01] MEDS: Pantoprazole 40 MG VIAL IVP SCH (07:50)
[2021-05-01] MEDS: Chlorhexidine Rinse 15 ML MOUTHWASH MM SCH ×2 (07:53→20:08)
[2021-05-01] MEDS: Budesonide/Formoterol 160/4.5 1 PUFF INH IH SCH ×2 (09:30→19:34)
[2021-05-01 11:59] LABS: BUN/Creatinine Ratio 21 (6-26); Blood Urea Nitrogen 14 mg/dL (8-23); Calcium 7.4 mg/dL (8.6-10.3); Carbon Dioxide 24 mEq/L (23-29); Chloride 115 mEq/L (98-107); Glucose 151 mg/dL (70-105); Magnesium 2.3 mg/dL (1.6-2.6); Osmolality,Calculated 299 (280-300); Potassium 4.4 mEq/L (3.5-5.1); Sodium 143 mEq/L (136-145); eGFR For African Americans > 60 (> 60); eGFR For Non-African Americans > 60 (> 60)
[2021-05-01] MEDS ORDERED: Clinimix E 5%-15% SOLUTION 2,000 ML with MVI, adult with vitamin K 10 ML IVC SCH (17:00)
[2021-05-02] MEDS: FentaNYL (PF) 1,000 MCG/100 ML IV.SOLN IVC SCH ×3 (00:29→19:41)
[2021-05-02] MEDS: Norepinephrine 8 MG in 0.9 % Sodium Chloride 250 ML IVC SCH ×3 (03:10→14:34)
[2021-05-02] MEDS: Insulin LISPRO 300 UNITS/3 ML VIAL SUBQ SCH ×5 (04:19→21:25)
[2021-05-02] MEDS: Artificial Tears SOLN 15 ML BOTTLE BOTH EYES SCH ×5 (04:19→21:24)
[2021-05-02 04:23] LABS: VBG Ionized Calcium 1.19 mmol/L (1.15-1.35)
[2021-05-02 04:30] LABS: Basophils % 0.4 %
[2021-05-02 04:32] LABS: Eosinophils # 0.2 K/mcL (0.0-0.6); Eosinophils % 2.2 %; Hematocrit 35.3 % (35.3-44.9); Immature Granulocytes % 0.4 % (0-4); Immature Platelets 2.3 % (1.1-6.1); Lymphocytes # 0.5 K/mcL (0.6-4.6); Lymphocytes % 5.7 %; Mean Corpuscular HGB Conc 31.2 g/dL (31.6-35.5); Mean Corpuscular Hemoglobin 32.7 pg (28.0-33.3); Mean Corpuscular Volume 105.1 fL (83.0-100.0); Mean Platelet Volume 9.8 fL (9.4-12.4); Monocytes # 0.5 K/mcL (0.0-1.3); Monocytes % 5.7 %; Neutrophils # 7.7 K/mcL (1.6-8.9); Platelet Count 110 K/mcL (140-400); Red Blood Count 3.36 M/mcL (3.82-4.97); Red Cell Distribution Width 13.4 % (11.5-14.5); Segmented Neutrophils % 85.6 %
[2021-05-02 04:36] LABS: ABG Base Excess -2 mEq/L (-2 to 3); ABG HCO3 25 mEq/L (21-27); ABG Oxygen Saturation 92 % (95-98); ABG PCO2 52 mmHg (35-45); ABG PH 7.29 pH Units (7.32-7.45); ABG PO2 73 mmHg (85-104); ABG TCO2 27 mEq/L (20-26); Blood Gas Modality ASSIST CONTROL; Blood Gas VT 300 cc
[2021-05-02 04:48] LABS: Phosphorous 2.2 mg/dL (2.7-4.5)
[2021-05-02 04:55] LABS: BUN/Creatinine Ratio 23 (6-26); Blood Urea Nitrogen 15 mg/dL (8-23); Calcium 7.3 mg/dL (8.6-10.3); Carbon Dioxide 24 mEq/L (23-29); Chloride 114 mEq/L (98-107); Glucose 104 mg/dL (70-105); Osmolality,Calculated 293 (280-300); Potassium 4.3 mEq/L (3.5-5.1); Sodium 141 mEq/L (136-145); eGFR For African Americans > 60 (> 60); eGFR For Non-African Americans > 60 (> 60)
[2021-05-02 05:17] LABS: Platelet Estimate Slight Decrease (Normal); Reactive Lymphocytes Present (Not Present)
[2021-05-02] MEDS: Budesonide/Formoterol 160/4.5 1 PUFF INH IH SCH ×2 (07:49→20:38)
[2021-05-02] MEDS ORDERED: Albumin 25% 25gram/100mL 25 GM/100 ML IV.SOLN IVPB ONE (09:12)
[2021-05-02] MEDS: Vasopressin 40 UNIT in D5% in Water 100 ML IVC SCH (09:17)
[2021-05-02] MEDS: Piperacillin/Tazobactam 3.375 GM in 0.9 % Sodium Chloride Mini Bag 100 ML IVPB SCH ×2 (09:55→15:41)
[2021-05-02] MEDS: Chlorhexidine Rinse 15 ML MOUTHWASH MM SCH ×2 (09:56→21:25)
[2021-05-02] MEDS: Pantoprazole 40 MG VIAL IVP SCH (09:56)
[2021-05-02] MEDS ORDERED: Clinimix E 5%-15% SOLUTION 2,000 ML with MVI, adult with vitamin K 10 ML IVC SCH (17:00)
[2021-05-03] MEDS: Piperacillin/Tazobactam 3.375 GM in 0.9 % Sodium Chloride Mini Bag 100 ML IVPB SCH ×3 (00:10→15:52)
[2021-05-03] MEDS: Norepinephrine 8 MG in 0.9 % Sodium Chloride 250 ML IVC SCH ×3 (00:10→16:06)
[2021-05-03] MEDS: Insulin LISPRO 300 UNITS/3 ML VIAL SUBQ SCH ×6 (00:21→22:17)
[2021-05-03] MEDS: Artificial Tears SOLN 15 ML BOTTLE BOTH EYES SCH ×6 (00:30→19:20)
[2021-05-03 03:36] LABS: VBG Ionized Calcium 1.21 mmol/L (1.15-1.35)
[2021-05-03 03:37] LABS: Mean Platelet Volume 9.8 fL (9.4-12.4)
[2021-05-03 03:39] LABS: Basophils % 0.4 %; Eosinophils # 0.4 K/mcL (0.0-0.6); Eosinophils % 4.1 %; Hemoglobin 10.1 g/dL (11.5-15.4); Immature Granulocytes % 0.8 % (0-4); Immature Platelets 2.4 % (1.1-6.1); Lymphocytes # 0.7 K/mcL (0.6-4.6); Lymphocytes % 7.8 %; Mean Corpuscular HGB Conc 30.6 g/dL (31.6-35.5); Mean Corpuscular Hemoglobin 32.8 pg (28.0-33.3); Mean Corpuscular Volume 107.1 fL (83.0-100.0); Neutrophils # 6.5 K/mcL (1.6-8.9); Red Blood Count 3.08 M/mcL (3.82-4.97); Red Cell Distribution Width 13.5 % (11.5-14.5); Segmented Neutrophils % 75.9 %; White Blood Count 8.6 K/mcL (4.3-11.1)
[2021-05-03 03:58] LABS: Platelet Count 93 K/mcL (140-400)
[2021-05-03 03:59] LABS: Platelet Estimate Decreased (Normal)
[2021-05-03 04:13] LABS: BUN/Creatinine Ratio 29 (6-26); Blood Urea Nitrogen 16 mg/dL (8-23); Calcium 7.3 mg/dL (8.6-10.3); Carbon Dioxide 24 mEq/L (23-29); Chloride 114 mEq/L (98-107); Glucose 125 mg/dL (70-105); Magnesium 1.9 mg/dL (1.6-2.6); Osmolality,Calculated 295 (280-300); Phosphorous 3.1 mg/dL (2.7-4.5); Sodium 141 mEq/L (136-145); eGFR For African Americans > 60 (> 60); eGFR For Non-African Americans > 60 (> 60)
[2021-05-03 05:03] LABS: ABG Base Excess -4 mEq/L (-2 to 3); ABG HCO3 24 mEq/L (21-27); ABG Oxygen Saturation 93 % (95-98); ABG PCO2 54 mmHg (35-45); ABG PH 7.25 pH Units (7.32-7.45); ABG PO2 79 mmHg (85-104); ABG TCO2 26 mEq/L (20-26); Blood Gas Modality ASSIST CONTROL; Blood Gas VT 300 cc
[2021-05-03] MEDS: FentaNYL (PF) 1,000 MCG/100 ML IV.SOLN IVC SCH ×2 (07:39→16:36)
[2021-05-03] MEDS: Pantoprazole 40 MG VIAL IVP SCH (08:07)
[2021-05-03] MEDS: Chlorhexidine Rinse 15 ML MOUTHWASH MM SCH ×2 (08:08→22:17)
[2021-05-03] MEDS: Budesonide/Formoterol 160/4.5 1 PUFF INH IH SCH ×2 (10:36→20:42)
[2021-05-03 11:13] LABS: ABG Base Excess -1 mEq/L (-2 to 3); ABG HCO3 22 mEq/L (21-27); ABG Oxygen Saturation 99 % (95-98); ABG PCO2 31 mmHg (35-45); ABG PH 7.47 pH Units (7.32-7.45); ABG PO2 146 mmHg (85-104); ABG TCO2 23 mEq/L (20-26); Blood Gas Modality ASSIST CONTROL; Blood Gas VT 300 cc
[2021-05-03] MEDS: Albumin 25% 25gram/100mL 25 GM/100 ML IV.SOLN IVPB SCH (14:57)
[2021-05-03] MEDS ORDERED: Clinimix E 5%-15% SOLUTION 2,000 ML with MVI, adult with vitamin K 10 ML IVC SCH (17:00)
[2021-05-04] MEDS: Piperacillin/Tazobactam 3.375 GM in 0.9 % Sodium Chloride Mini Bag 100 ML IVPB SCH ×4 (00:58→23:38)
[2021-05-04] MEDS: Artificial Tears SOLN 15 ML BOTTLE BOTH EYES SCH ×4 (01:01→13:02)
[2021-05-04] MEDS: Insulin LISPRO 300 UNITS/3 ML VIAL SUBQ SCH ×6 (01:01→21:09)
[2021-05-04] MEDS: Norepinephrine 8 MG in 0.9 % Sodium Chloride 250 ML IVC SCH ×3 (01:40→18:54)
[2021-05-04] MEDS: FentaNYL (PF) 1,000 MCG/100 ML IV.SOLN IVC SCH ×3 (02:49→23:00)
[2021-05-04] MEDS: Albumin 25% 25gram/100mL 25 GM/100 ML IV.SOLN IVPB SCH ×2 (03:02→14:27)
[2021-05-04 03:35] LABS: Eosinophils % 4.2 %; Red Cell Distribution Width 13.4 % (11.5-14.5)
[2021-05-04 03:35] LABS: VBG Ionized Calcium 1.19 mmol/L (1.15-1.35)
[2021-05-04 03:37] LABS: Basophils % 0.4 %; Eosinophils # 0.3 K/mcL (0.0-0.6); Hematocrit 32.1 % (35.3-44.9); Hemoglobin 9.8 g/dL (11.5-15.4); Immature Granulocytes % 1.5 % (0-4); Immature Platelets 2.9 % (1.1-6.1); Lymphocytes # 0.7 K/mcL (0.6-4.6); Lymphocytes % 8.6 %; Mean Corpuscular HGB Conc 30.5 g/dL (31.6-35.5); Mean Corpuscular Hemoglobin 32.5 pg (28.0-33.3); Mean Corpuscular Volume 106.3 fL (83.0-100.0); Mean Platelet Volume 9.7 fL (9.4-12.4); Monocytes # 1.6 K/mcL (0.0-1.3); Monocytes % 19.5 %; Red Blood Count 3.02 M/mcL (3.82-4.97); Segmented Neutrophils % 65.8 %
[2021-05-04 03:57] LABS: BUN/Creatinine Ratio 36 (6-26); Blood Urea Nitrogen 18 mg/dL (8-23); Calcium 7.5 mg/dL (8.6-10.3); Carbon Dioxide 26 mEq/L (23-29); Chloride 114 mEq/L (98-107); Glucose 128 mg/dL (70-105); Magnesium 2.1 mg/dL (1.6-2.6); Osmolality,Calculated 298 (280-300); Phosphorous 2.2 mg/dL (2.7-4.5); Potassium 3.9 mEq/L (3.5-5.1); Sodium 142 mEq/L (136-145); eGFR For African Americans > 60 (> 60); eGFR For Non-African Americans > 60 (> 60)
[2021-05-04 03:59] LABS: Neutrophils # 5.3 K/mcL (1.6-8.9); Platelet Count 95 K/mcL (140-400)
[2021-05-04 04:39] LABS: Platelet Estimate Decreased (Normal)
[2021-05-04 04:53] LABS: ABG Base Excess -2 mEq/L (-2 to 3); ABG HCO3 27 mEq/L (21-27); ABG Oxygen Saturation 95 % (95-98); ABG PCO2 61 mmHg (35-45); ABG PH 7.25 pH Units (7.32-7.45); ABG PO2 90 mmHg (85-104); ABG TCO2 29 mEq/L (20-26); Blood Gas Modality ASSIST CONTROL; Blood Gas VT 300 cc
[2021-05-04] MEDS: Budesonide/Formoterol 160/4.5 1 PUFF INH IH SCH ×2 (07:23→19:54)
[2021-05-04] MEDS: Chlorhexidine Rinse 15 ML MOUTHWASH MM SCH ×2 (08:16→21:09)
[2021-05-04] MEDS: Pantoprazole 40 MG VIAL IVP SCH (08:17)
[2021-05-04 09:32] LABS: ABG Base Excess 0 mEq/L (-2 to 3); ABG HCO3 28 mEq/L (21-27); ABG Oxygen Saturation 92 % (95-98); ABG PCO2 63 mmHg (35-45); ABG PH 7.25 pH Units (7.32-7.45); ABG PO2 76 mmHg (85-104); ABG TCO2 30 mEq/L (20-26); Blood Gas VT 300 cc
[2021-05-04 11:25] LABS: ABG Base Excess -1 mEq/L (-2 to 3); ABG HCO3 28 mEq/L (21-27); ABG Oxygen Saturation 77 % (95-98); ABG PCO2 64 mmHg (35-45); ABG PH 7.24 pH Units (7.32-7.45); ABG PO2 50 mmHg (85-104); ABG TCO2 30 mEq/L (20-26); Blood Gas Modality ASSIST CONTROL; Blood Gas VT 330 cc
[2021-05-04] MEDS ORDERED: Clinimix E 5%-15% SOLUTION 2,000 ML with MVI, adult with vitamin K 10 ML IVC SCH (17:00)
[2021-05-04] MEDS: Lacri-Lube 3.5 GM TUBE BOTH EYES SCH (21:10)
[2021-05-04 22:07] LABS: Phosphorous 2.7 mg/dL (2.7-4.5); Potassium 4.1 mEq/L (3.5-5.1)
[2021-05-05] MEDS: Insulin LISPRO 300 UNITS/3 ML VIAL SUBQ SCH ×7 (01:01→23:12)
[2021-05-05 03:23] LABS: VBG Ionized Calcium 1.23 mmol/L (1.15-1.35)
[2021-05-05 03:39] LABS: BUN/Creatinine Ratio 44 (6-26); Blood Urea Nitrogen 20 mg/dL (8-23); Calcium 7.6 mg/dL (8.6-10.3); Carbon Dioxide 25 mEq/L (23-29); Chloride 111 mEq/L (98-107); Glucose 125 mg/dL (70-105); Magnesium 1.9 mg/dL (1.6-2.6); Osmolality,Calculated 294 (280-300); Phosphorous 2.7 mg/dL (2.7-4.5); Potassium 4.2 mEq/L (3.5-5.1); Sodium 140 mEq/L (136-145); eGFR For African Americans > 60 (> 60); eGFR For Non-African Americans > 60 (> 60)
[2021-05-05] MEDS: Norepinephrine 8 MG in 0.9 % Sodium Chloride 250 ML IVC SCH ×3 (03:40→17:32)
[2021-05-05 04:05] LABS: ABG Base Excess -4 mEq/L (-2 to 3); ABG HCO3 25 mEq/L (21-27); ABG Oxygen Saturation 76 % (95-98); ABG PCO2 67 mmHg (35-45); ABG PH 7.18 pH Units (7.32-7.45); ABG PO2 52 mmHg (85-104); ABG TCO2 27 mEq/L (20-26); Blood Gas VT 330 cc
[2021-05-05 04:09] LABS: Hematocrit 32.6 % (35.3-44.9); Hemoglobin 9.7 g/dL (11.5-15.4); Immature Platelets 3.9 % (1.1-6.1); Mean Corpuscular HGB Conc 29.8 g/dL (31.6-35.5); Mean Corpuscular Hemoglobin 32.7 pg (28.0-33.3); Mean Corpuscular Volume 109.8 fL (83.0-100.0); Mean Platelet Volume 9.5 fL (9.4-12.4); Red Blood Count 2.97 M/mcL (3.82-4.97); Red Cell Distribution Width 13.5 % (11.5-14.5)
[2021-05-05] MEDS: Albumin 25% 25gram/100mL 25 GM/100 ML IV.SOLN IVPB SCH ×2 (04:14→14:50)
[2021-05-05] MEDS ORDERED: Furosemide 20 MG/2 ML VIAL IVP ONE (05:59)
[2021-05-05] MEDS: Budesonide/Formoterol 160/4.5 1 PUFF INH IH SCH ×2 (07:33→19:55)
[2021-05-05] MEDS: FentaNYL (PF) 1,000 MCG/100 ML IV.SOLN IVC SCH ×2 (07:35→15:57)
[2021-05-05] MEDS: Piperacillin/Tazobactam 3.375 GM in 0.9 % Sodium Chloride Mini Bag 100 ML IVPB SCH ×3 (09:05→23:12)
[2021-05-05] MEDS: Lacri-Lube 3.5 GM TUBE BOTH EYES SCH ×2 (09:06→20:50)
[2021-05-05] MEDS: Pantoprazole 40 MG VIAL IVP SCH (09:06)
[2021-05-05] MEDS: Chlorhexidine Rinse 15 ML MOUTHWASH MM SCH ×2 (09:06→19:21)
[2021-05-05] MEDS: Artificial Tears SOLN 15 ML BOTTLE BOTH EYES SCH (09:46)
[2021-05-05] MEDS: Vasopressin 40 UNIT in D5% in Water 100 ML IVC SCH (09:47)
[2021-05-05 10:03] LABS: ABG Base Excess -1 mEq/L (-2 to 3); ABG HCO3 27 mEq/L (21-27); ABG Oxygen Saturation 83 % (95-98); ABG PCO2 65 mmHg (35-45); ABG PH 7.23 pH Units (7.32-7.45); ABG PO2 57 mmHg (85-104); ABG TCO2 29 mEq/L (20-26); Blood Gas Modality ASSIST CONTROL; Blood Gas VT 330 cc
[2021-05-05] MEDS ORDERED: Clinimix E 5%-15% SOLUTION 2,000 ML with MVI, adult with vitamin K 10 ML IVC SCH (17:00)
[2021-05-05 18:02] LABS: VBG Ionized Calcium 1.26 mmol/L (1.15-1.35)
[2021-05-05 18:20] LABS: BUN/Creatinine Ratio 48 (6-26); Blood Urea Nitrogen 25 mg/dL (8-23); Calcium 7.9 mg/dL (8.6-10.3); Carbon Dioxide 26 mEq/L (23-29); Chloride 111 mEq/L (98-107); Glucose 126 mg/dL (70-105); Osmolality,Calculated 294 (280-300); Phosphorous 2.7 mg/dL (2.7-4.5); Potassium 3.9 mEq/L (3.5-5.1); Sodium 139 mEq/L (136-145); eGFR For African Americans > 60 (> 60); eGFR For Non-African Americans > 60 (> 60)
[2021-05-06] MEDS: FentaNYL (PF) 1,000 MCG/100 ML IV.SOLN IVC SCH ×3 (00:06→16:12)
[2021-05-06] MEDS: Norepinephrine 8 MG in 0.9 % Sodium Chloride 250 ML IVC SCH ×2 (01:07→14:51)
[2021-05-06] MEDS: Albumin 25% 25gram/100mL 25 GM/100 ML IV.SOLN IVPB SCH ×2 (02:01→15:02)
[2021-05-06] MEDS: Insulin LISPRO 300 UNITS/3 ML VIAL SUBQ SCH ×6 (03:15→23:18)
[2021-05-06 03:43] LABS: BUN/Creatinine Ratio 49 (6-26); Blood Urea Nitrogen 29 mg/dL (8-23); Calcium 7.9 mg/dL (8.6-10.3); Carbon Dioxide 28 mEq/L (23-29); Chloride 111 mEq/L (98-107); Glucose 123 mg/dL (70-105); Osmolality,Calculated 301 (280-300); Sodium 142 mEq/L (136-145); eGFR For African Americans > 60 (> 60); eGFR For Non-African Americans > 60 (> 60)
[2021-05-06 04:23] LABS: Eosinophils % 2.3 %; Nucleated Red Blood Cells 0.3 /100 WBC (0)
[2021-05-06 04:25] LABS: Basophils % 0.3 %; Eosinophils # 0.3 K/mcL (0.0-0.6); Hematocrit 27.3 % (35.3-44.9); Hemoglobin 8.2 g/dL (11.5-15.4); Immature Granulocytes % 1.4 % (0-4); Immature Platelets 4.6 % (1.1-6.1); Lymphocytes # 0.6 K/mcL (0.6-4.6); Lymphocytes % 5.4 %; Mean Corpuscular Hemoglobin 33.1 pg (28.0-33.3); Mean Corpuscular Volume 110.1 fL (83.0-100.0); Mean Platelet Volume 10.3 fL (9.4-12.4); Monocytes # 0.7 K/mcL (0.0-1.3); Monocytes % 6.3 %; Platelet Count 102 K/mcL (140-400); Red Blood Count 2.48 M/mcL (3.82-4.97); Red Cell Distribution Width 13.3 % (11.5-14.5); Segmented Neutrophils % 84.3 %; White Blood Count 11.1 K/mcL (4.3-11.1)
[2021-05-06 04:28] LABS: Neutrophils # 9.4 K/mcL (1.6-8.9)
[2021-05-06 04:54] LABS: ABG Base Excess -1 mEq/L (-2 to 3); ABG HCO3 28 mEq/L (21-27); ABG Oxygen Saturation 79 % (95-98); ABG PCO2 73 mmHg (35-45); ABG PH 7.19 pH Units (7.32-7.45); ABG PO2 55 mmHg (85-104); ABG TCO2 30 mEq/L (20-26); Blood Gas VT 380 cc
[2021-05-06 05:15] LABS: Platelet Estimate Decreased (Normal); Reactive Lymphocytes Present (Not Present)
[2021-05-06] MEDS: Budesonide/Formoterol 160/4.5 1 PUFF INH IH SCH ×2 (07:35→20:25)
[2021-05-06] MEDS: Piperacillin/Tazobactam 3.375 GM in 0.9 % Sodium Chloride Mini Bag 100 ML IVPB SCH ×3 (07:41→23:18)
[2021-05-06] MEDS: Pantoprazole 40 MG VIAL IVP SCH (07:41)
[2021-05-06] MEDS: Lacri-Lube 3.5 GM TUBE BOTH EYES SCH ×2 (07:41→20:03)
[2021-05-06] MEDS: Chlorhexidine Rinse 15 ML MOUTHWASH MM SCH ×2 (07:41→20:03)
[2021-05-06 13:58] LABS: Blood Gas VT 410 cc; Mixed Venous Blood pCO2 62 mmHg (44-46); Mixed Venous Blood pH 7.24 pH Units (7.34-7.36); Mixed Venous Blood pO2 51 mmHg (35-45)
[2021-05-06] MEDS ORDERED: Clinimix E 5%-15% SOLUTION 2,000 ML with MVI, adult with vitamin K 10 ML IVC SCH (17:00)
[2021-05-07] MEDS: Insulin LISPRO 300 UNITS/3 ML VIAL SUBQ SCH ×2 (03:37→09:10)
[2021-05-07 03:48] LABS: BUN/Creatinine Ratio 65 (6-26); Blood Urea Nitrogen 49 mg/dL (8-23); Calcium 8.1 mg/dL (8.6-10.3); Carbon Dioxide 24 mEq/L (23-29); Chloride 110 mEq/L (98-107); Glucose 125 mg/dL (70-105); Magnesium 2.1 mg/dL (1.6-2.6); Osmolality,Calculated 304 (280-300); Phosphorous 3.7 mg/dL (2.7-4.5); Potassium 4.6 mEq/L (3.5-5.1); Sodium 140 mEq/L (136-145); eGFR For African Americans > 60 (> 60); eGFR For Non-African Americans > 60 (> 60)
[2021-05-07] MEDS: Budesonide/Formoterol 160/4.5 1 PUFF INH IH SCH (07:44)
[2021-05-07 09:09] VITALS: BP 79/50
[2021-05-07] MEDS: Piperacillin/Tazobactam 3.375 GM in 0.9 % Sodium Chloride Mini Bag 100 ML IVPB SCH (09:10)
[2021-05-07] MEDS: Chlorhexidine Rinse 15 ML MOUTHWASH MM SCH (09:10)
[2021-05-07] MEDS: FentaNYL (PF) 1,000 MCG/100 ML IV.SOLN IVC SCH ×2 (09:13)
[2021-05-07] MEDS: Pantoprazole 40 MG VIAL IVP SCH (09:35)
[2021-05-07] MEDS: Lacri-Lube 3.5 GM TUBE BOTH EYES SCH (09:35)
[2021-05-07] MEDS ORDERED: *HR* FentaNYL (PF) 100 MCG/2 ML VIAL IVP PRN (09:36)
[2021-05-07] MEDS ORDERED: *HR* LORazepam 2 MG/ML VIAL IVP PRN (09:36)
[2021-05-07] MEDS ORDERED: Atropine 1% Opth Drops 100 DROP/5 ML BOTTLE SL PRN (09:42)
[2021-05-07] MEDS ORDERED: Haloperidol Lactate 5 MG/ML VIAL IVP PRN (09:53)
== END 2021-05-07 12:05 | disposition expired | DRG 853 ==
LOC: 3ANU 16:03 → EMEROOARM 16:03 → SUATTDRO 21:52 → 3ANU 22:27 → ICNU 04-29 14:27
PROVIDERS: ADMIT Internal Medicine; ATTEND Internal Medicine